=== PATIENT | male | born 1980 | race Hispanic/Latino ===

== ENCOUNTER 2018-08-25 02:36 | Inpatient (IN) | payer SELFPAY ==
[~2018-08-25] VITALS: Ht 177.8 cm; Wt 97.1 kg
[2018-08-25] VITALS (20 sets, daily range): BP systolic 84–118; BP diastolic 61–82
[2018-08-25] MEDS ORDERED: NITROGLYCERIN 2% OINT 1 GM PKT ONE (02:48)
[2018-08-25] MEDS ORDERED: ASPIRIN 81 MG CHEW TAB ONE (02:48)
--- NOTE | 2018-08-25 02:49 | NUR ---
Consents reviewed, all agreed upon, signed
[2018-08-25 02:57] LABS: BASOPHILS # (AUTO) 0.1 (0.0-0.1); BASOPHILS % 0.3 % (0.0-1.0); EOSINOPHILS # (AUTO) 0.2 (0.0-0.4); EOSINOPHILS % 1.4 % (0.0-6.0); HEMATOCRIT 32.9 % (38.2-49.6); HEMOGLOBIN 11.6 g/dL (14.0-18.0); LYMPHOCYTES # (AUTO) 1.6 (1.0-3.2); LYMPHOCYTES % 10.8 % (18.0-39.1); MEAN CORPUSCULAR HEMOGLOBIN 27.8 pg (28-32); MEAN CORPUSCULAR HGB CONC 35.3 g/dL (31-35); MEAN CORPUSCULAR VOLUME 78.7 fL (81-99); MONOCYTES # (AUTO) 0.9 (0.2-0.8); MONOCYTES % 5.9 % (4.4-11.3); NEUTROPHILS # (AUTO) 11.8 (2.1-6.9); NEUTROPHILS % 81.1 % (38.7-80.0); PLATELET COUNT 266 x10e3/uL (140-360); RED BLOOD COUNT 4.18 x10e6/uL (4.3-5.7); RED CELL DISTRIBUTION WIDTH 13.6 % (11.7-14.4)
[2018-08-25] MEDS ORDERED: ASPIRIN 81 MG CHEW TAB PO ONE ×2 (03:00)
[2018-08-25] MEDS ORDERED: NITROGLYCERIN 2% OINT 1 GM PKT TOP ONE (03:00)
--- NOTE | 2018-08-25 03:08 | NUR ---
Dr. Greene at pts bedside
--- NOTE | 2018-08-25 03:11 | NUR ---
portable xray to suze
[2018-08-25] MEDS ORDERED: IOPAMIDOL 370 MG/ML 200 ML INFUS..BTL INJ ONE (03:13)
[2018-08-25] MEDS ORDERED: HEPARIN SOD/SOD CHLORIDE 2,000 ML ONE (03:13)
[2018-08-25] MEDS ORDERED: LIDOCAINE HCL 2% LOCAL 20 ML VIAL ONE (03:13)
[2018-08-25 03:17] LABS: ALANINE AMINOTRANSFERASE 29 IU/L (0-55); ALBUMIN 3.8 g/dL (3.5-5.0); ALBUMIN/GLOBULIN RATIO 0.9 (0.8-2.0); ALKALINE PHOSPHATASE 88 IU/L (40-150); ANION GAP 17.9 mmol/L (8-16); BLOOD UREA NITROGEN 26 mg/dL (7-26); BUN/CREATININE RATIO 9 (6-25); CALCIUM 9.7 mg/dL (8.4-10.2); CARBON DIOXIDE 23 mmol/L (22-29); CHLORIDE 102 mmol/L (98-107); CREATINE KINASE 975 IU/L (30-200); CREATININE, SERUM 2.74 mg/dL (0.72-1.25); EST GLOMERULAR FILTRATION RATE 26 ML/MIN (60-); POTASSIUM 3.9 mmol/L (3.5-5.1); SODIUM 139 mmol/L (136-145)
[2018-08-25 03:19] LABS: GLUCOSE 565 mg/dL (74-118)
--- NOTE | 2018-08-25 03:20 | NUR ---
pt to chemical laboratory tester c eri lee, charge nurse and chemical laboratory tester nurse. pt c defib pads in place. o2 via nrb mask.
[2018-08-25] MEDS ORDERED: SODIUM CHLORIDE 0.9% 1000ML 1,000 ML ONE (03:23)
[2018-08-25] MEDS ORDERED: FENTANYL CITRATE/PF 100MCG/2 ML INJ ONE ×2 (03:23→04:44)
[2018-08-25] MEDS ORDERED: MIDAZOLAM HCL 2 MG/2 ML VIAL ONE ×3 (03:23→03:51)
[2018-08-25] MEDS ORDERED: NITROGLYCERIN/D5W 200 MCG/ML 250 ML ONE (03:26)
[2018-08-25] MEDS ORDERED: SODIUM CHLORIDE 0.9% 50ML 100 ML ONE (03:27)
[2018-08-25] MEDS ORDERED: BIVALRIUDIN 250 MG/VIAL VIAL IV ONE (03:27)
--- NOTE | 2018-08-25 03:27 | Diagnostic Imaging Report ---
EXAMINATION: CHEST SINGLE (PORTABLE) COMPARISON: Chest x-ray 04/26/2011 INDICATION: Chest pain, STEMI alert ^CHEST PAIN ^N DISCUSSION: Frontal view of the chest obtained at 0309 hours. HEART AND MEDIASTINUM: Mild cardiomegaly LINES: None. LUNGS: Diffuse interstitial edema and diffuse ground left airspace opacities. Mildly prominent pulmonary vasculature. PLEURA: No large effusions. No pneumothorax. BONES AND SOFT TISSUES: No focal osseous lesion. The soft tissues are normal. IMPRESSION: Interstitial and alveolar edema. Mild cardiomegaly. Signed by: Dr. Marga Cabrera MD on 08/25/2018 3:23 AM
[2018-08-25] MEDS ORDERED: FUROSEMIDE INJ 10 MG/ML 4 ML VIAL ONE (03:37)
[2018-08-25 03:56] LABS: INR 0.84; PARTIAL THROMBOPLASTIN TIME 27.8 seconds (23.8-35.5)
[2018-08-25] MEDS ORDERED: MIDAZOLAM HCL 25 MG in SODIUM CHLORIDE 0.9% 50ML 45 ML IV PRN ×2 (04:00→08:45)
[2018-08-25] MEDS ORDERED: CLOPIDOGREL BISULFATE 75 MG TAB ONE (04:01)
[2018-08-25] MEDS ORDERED: MIDAZOLAM HCL 5 MG/ML VIAL ONE (04:05)
[2018-08-25] MEDS ORDERED: SODIUM CHLORIDE 0.9% 0 ML ONE (04:06)
[2018-08-25] MEDS ORDERED: SODIUM CHLORIDE 0.9% 50ML 50 ML ONE (04:07)
--- OUTSIDE RECORDS SUMMARY | 2018-08-25 04:28 | XMS REPORT ---
Author [facility] Address Unknown Phone Unavailable Care Team Providers Care Spanish Interpreter/Translator Name Role Phone Cassidy DARDEN Unavailable Unavailable Problems This patient has no known problems. Allergies, Adverse Reactions, Alerts This patient has no known allergies or adverse reactions. Medications This patient has no known medications. Results Test Description Test Time Test Comments Text Results Atomic Results Result Comments CHEST SINGLE (PORTABLE) 2018-08-25 03:21:00 [place] [id number] Patient Name: MADAY GASPAR MR #: [id number] : 1980 Age/Sex: 38/M Req #: [id number] Adm Physician: Ordered by: TD DARDEN MD Report #: [id number] Location: ER Room/Bed: Procedure: [id number] DX/CHEST SINGLE (PORTABLE) Exam Date: Exam Time: REPORT STATUS: Signed EXAMINATION: CHEST SINGLE (PORTABLE) COMPARISON: [facility] x-ray 04/26/2011 INDICATION: Chest pain, STEMI alert CHEST PAIN N DISCUSSION: Frontal view of the chest obtained at 0309 hours. HEART AND MEDIASTINUM: Mild cardiomegaly LINES: None. LUNGS: Diffuse interstitial edema and diffuse ground left airspace opacities. Mildly prominent pulmonary vasculature. PLEURA: No large effusions. No pneumothorax. BONES AND SOFT TISSUES: No focal osseous lesion. The soft tissues are normal. IMPRESSION: Interstitial and alveolar edema. Mild cardiomegaly. Signed by: Dr. Dez Cabrera MD on 08/25/2018 3:23 AM Dictated By: DEZ CABRERA MD 2 Transcribed By: FABIAN on 08/25/18322 COPY TO: TD DARDEN MD
[2018-08-25] MEDS ORDERED: DEXTROSE 50% SYRINGE 50 ML IV PRN ×4 (04:30→14:00)
[2018-08-25] MEDS ORDERED: FENTANYL CITRATE/PF 100MCG/2 ML INJ IV ONE (04:30)
[2018-08-25] MEDS ORDERED: FENTANYL CITRATE INJ 2,000 MCG in SODIUM CHLORIDE 0.9% 250ML 210 ML IV PRN (04:30)
[2018-08-25] MEDS ORDERED: ONDANSETRON HCL INJ 2MG/ML 2ML 2 MG/ML VIAL ONE ×2 (04:41→16:09)
[2018-08-25] MEDS ORDERED: SODIUM CHLORIDE 0.9% 250ML 250 ML ONE (04:42)
[2018-08-25] MEDS ORDERED: ONDANSETRON HCL 4 MG ORAL DISINTEGRATING TAB PO PRN (04:45)
--- NOTE | 2018-08-25 04:58 | Consultation ---
DATE OF CONSULTATION: REASON FOR CONSULT: Acute anterolateral wall myocardial infarction. HISTORY OF PRESENT ILLNESS: Mr. Duran is a 38-year-old gentleman with past medical history as listed below. Apparently, he has been experiencing chest pain off and on for the week or so, but at about 8:00 p.m. last night, the patient developed crushing chest pain, it was persistent, short of breath and so he decided to come to the hospital this morning. EKG done at about 2:57, showed sinus rhythm, [address] elevation in I, aVL, V3 to V6 with Q-waves in V1 to V6 consistent with the recent anterolateral wall myocardial infarction. The patient continues to have chest pain at the time of interview. The patient is also short of breath. His O2 sats were in the high 80s and low 90s. Initially, there was plans of intubation, but intubation was held off. He denies any abdominal pain, vomiting, or diarrhea. No bleeding problems. REVIEW OF SYMPTOMS: CONSTITUTIONAL: Has fatigue and weakness. HEENT: No headache, blurring of vision, seizures, or syncope. CARDIOVASCULAR: Had chest pain, has dyspnea, and some orthopnea. No PND. He thinks he might have some leg edema. RESPIRATORY: No cough, fever, or expectoration. GI: No abdominal pain, vomiting, or diarrhea. : No dysuria, frequency, or incontinence. ALLERGIES: NO KNOWN DRUG ALLERGIES. MEDICATIONS: See list. PAST MEDICAL HISTORY: History of hypertension, reportedly has not been taking any medication for the last five weeks because he ran out of them. SOCIAL HISTORY: Does not smoke. Drinks occasionally. FAMILY HISTORY: There is family history of hypertension and diabetes. PHYSICAL EXAMINATION: GENERAL: Obese gentleman, alert, oriented, not in obvious distress. VITAL SIGNS: Heart rate is 102, blood pressure is 124/68. HEENT: Atraumatic. Neck: No JVD, bruit, thyromegaly, or lymphadenopathy. CARDIOVASCULAR: First and second heart sounds heard. No murmurs, rubs, or gallops appreciated. CHEST: Decreased air entry at the bases. No adventitious sounds appreciated. ABDOMEN: Obese, nontender. EXTREMITIES: Trace edema. LABORATORY DATA: EKG shows sinus rhythm at 97 beats per minute, rightward axis, normal intervals, [address] elevation, one aVL, V3 to V6 with Q-waves V1 to V6. IMPRESSION: 1. Reason/acute anterolateral wall myocardial infarction. 2. Hypertension. 3. Obesity. PLAN: 1. The patient probably had DE recently and given that he has Q-waves in his anterior leads and probably developed another thrombus causing anterolateral wall myocardial infarction and given the patient's presentation with persistent chest pain, we will take the patient to the laboratory supervisor for cardiac catheterization and possible PCI. The patient has been explained about the procedure, risks, benefits, complications, alternatives. He understands and agrees to it. 2. His labs are pending. 3. The patient received aspirin, would give him other appropriate medication including anticoagulant, anti-platelet agents, beta-blockers, statins, KENNETH inhibitors, etc. as indicated. 4. Discussed my impression and plan of management with the patient and he understands. 5. At the time of dictation, waiting for the laboratory supervisor to come by and take the patient to the laboratory supervisor. As always, I appreciate and thank you very much for referral. Gt Greene MD [facility]/MODL /[id number]
--- NOTE | 2018-08-25 05:12 | Operative Report ---
DATE OF PROCEDURE: 08/25/2018 SURGEON: Gt Greene MD PROCEDURE: 1. Left heart catheterization. 2. Selective common angiogram. 3. LV-gram. 4. Stent placement in the LAD. INDICATIONS: Acute inferior lateral wall myocardial infarction. ANESTHESIA: 2% lidocaine for local anesthesia, fentanyl for conscious sedation and later on etomidate and Versed. BLOOD LOSS: 10 mL. DESCRIPTION OF PROCEDURE: After informed consent, the patient was brought to the cardiac catheterization laboratory and placed on the table. Both groins were painted and draped in a sterile fashion. Lidocaine injected in the right groin for local anesthesia. Right femoral artery was accessed by Seldinger technique and a 6-Angolan sheath was placed in right femoral artery. Left main was cannulated using a JL4, 6-Angolan catheter. Cholangiogram was performed and images were obtained with multiple views. It was noted that the patient had 100% occluded mid LAD. The catheter was removed and the left main was cannulated using an XB LAD 3.56-Angolan guide. Run-through wire was manipulated and placed in the mid LAD into the one of the diagonal branches (was observed later). The lesion was dilated at 10 atmospheres for about 20-25 seconds. The balloon was removed. Cholangiogram was performed and good flow was noted. The patient was short of breath prior to the start of procedure and was a non-rebreather. Initially, there were plans to intubate him prior to the procedure; however, the patient was talking. It was decided to bring him to the cardiac catheterization laboratory for the procedure itself. The ER physician and stated in the hospital laboratory technician. Since the patient became very dyspneic, the ER physician intubated the patient. While the ER physician was working on intubation, a 2.75 x 32 mm Synergy drug-eluting stent was advanced over the wire and deployed in the proximal mid LAD at 12 atmospheres for about 20-25 seconds. All this was performed under constant fluoroscopic guidance. Excellent result was obtained. There was 0% residual stenosis and ZOILA-3 flow noted. More images of the left system were obtained. The right coronary artery was cannulated using a 3DRC 6-Angolan catheter. Cholangiogram was spine and images were obtained in multiple views. The catheter would cannulate the large right ventricular branch most likely within the right coronary artery. LV-gram was performed using a pigtail catheter by hand injection. It was a poor quality LV-gram as it was hand injection with very low contrast. The patient tolerated the procedure without complications. The patient was given Angiomax during the procedure. The patient did not have OG or an NG tube and so Plavix was given at the time of procedure. The patient was given aspirin prior to the start of procedure. He is going to get 600 mg Plavix at the moment an NG tube is inserted. REPORT: 1. Left main; is of normal caliber and has luminal irregularities. 2. Left anterior descending; is normal caliber, is totally occluded in its mid segment. 3. After intervention, there was ZOILA-3 flow and 0% residual stenosis at the site of lesion. 4. Left circumflex; the circumflex is a narrow caliber vessel which gives rise to a large 1st obtuse marginal branch. The 1st obtuse marginal branch has 70% proximal lesion. The circumflex tapers off up to the 3rd obtuse marginal branch. The 3rd obtuse marginal branch is a narrow caliber vessel and has a 95% proximal lesion. 5. Right coronary artery; is of normal caliber, gives rise to a large right ventricular branch. It has luminal irregularities in the right coronary artery and the right ventricular branch. 6. LV-gram, poor quality and ejection. LV ejection fraction is probably about 35-40%. HEMODYNAMICS: Aortic pressure 106/78, LV pressure 105/16, LVEDP is 33. Balloon used is a 2 x 12 mm Emerge. Stent used is a 2.75 x 32 mm Synergy drug-eluting stent which was deployed in the mid LAD. There was ZOILA-3 flow and 0% residual stenosis. Gt Greene MD [facility]/SAMMYL /[id number]
[2018-08-25] MEDS ORDERED: ONDANSETRON HCL INJ 2MG/ML 2ML 2 MG/ML VIAL IV PRN (05:15)
--- NOTE | 2018-08-25 05:33 | Diagnostic Imaging Report ---
EXAMINATION: CHEST SINGLE (PORTABLE) COMPARISON: Chest x-ray 0309 hours INDICATION: Intubated ^ETT PLACEMENT DISCUSSION: Frontal view of the chest obtained at 0513 hours. The right hemithorax was not imaged in its entirety. HEART AND MEDIASTINUM: The heart is mildly enlarged LINES: Endotracheal tube terminates 3 to 4 cm with the omar. Enteric tube extends past the diaphragm. Multiple EKG wires overlie the chest. LUNGS: Diffuse alveolar and interstitial edema has progressed. PLEURA: No large effusions. No pneumothorax. BONES AND SOFT TISSUES: Stable. IMPRESSION: 1. Support devices as described above. 2. Worsening pulmonary edema. Signed by: Dr. Marga Cabrera MD on 08/25/2018 5:30 AM
--- NOTE | 2018-08-25 05:36 | Diagnostic Imaging Report ---
Abdomen/KUB INDICATION: Tube placement ^OGT PLACEMENT COMPARISON: None. FINDINGS: Portable, supine image obtained at 0514 hours. Medical Devices: Enteric tube terminates in the proximal stomach. The sidehole is located inferior to the diaphragm. Bowel: Unremarkable bowel gas pattern. No dilated bowel loops. Free air: None Calcifications: None over the renal shadows or along the expected course of the ureters. Organomegaly: None Bones: Unremarkable IMPRESSION: NG tube as described above. Unremarkable bowel gas pattern. Signed by: Dr. Marga Cabrera MD on 08/25/2018 5:33 AM
[2018-08-25 07:01] LABS: BASOPHILS % 0.4 % (0.0-1.0); EOSINOPHILS % 0.3 % (0.0-6.0); HEMATOCRIT 25.6 % (38.2-49.6); HEMOGLOBIN 8.9 g/dL (14.0-18.0); LYMPHOCYTES % 8.8 % (18.0-39.1); MEAN CORPUSCULAR HEMOGLOBIN 27.8 pg (28-32); MEAN CORPUSCULAR HGB CONC 34.8 g/dL (31-35); MONOCYTES # (AUTO) 0.9 (0.2-0.8); MONOCYTES % 7.8 % (4.4-11.3); NEUTROPHILS # (AUTO) 9.2 (2.1-6.9); NEUTROPHILS % 82.2 % (38.7-80.0); PLATELET COUNT 181 x10e3/uL (140-360); RED CELL DISTRIBUTION WIDTH 13.5 % (11.7-14.4)
[2018-08-25 07:24] LABS: CHOL/HDL RATIO 6.1 (3.9-4.7); CHOLESTEROL 164 MD/DL (0-199); CREATINE KINASE 4221 IU/L (30-200); HDL CHOLESTEROL 27 MG/DL (40-60)
--- NOTE | 2018-08-25 07:28 | Diagnostic Imaging Report ---
Exam: Abdominal film Clinical History: Orogastric tube placement Comparison: 08/25/2018 at 0514 DISCUSSION: Interval advancement of enteric tube. The tip projects over the region of the pylorus. The bowel gas pattern shows no dilated, air-filled loops of bowel. Electronic device projects over the left lower quadrant, likely external to the patient. No mass effect or organomegaly. Regional skeletal structures are intact. IMPRESSION: Enteric tube tip projects over the expected region of the pylorus. Nonobstructive bowel gas pattern. Signed by: Dr. Bennie Grimaldo M.D. on 08/25/2018 7:24 AM
[2018-08-25] MEDS ORDERED: INSULIN REGULAR, HUMAN 100 UNIT/1 ML 3ML VIAL SQ ONE (07:45)
[2018-08-25 08:13] LABS: ALBUMIN 3.1 g/dL (3.5-5.0); ALBUMIN/GLOBULIN RATIO 0.9 (0.8-2.0); CALCIUM 8.5 mg/dL (8.4-10.2); CREATININE, SERUM 2.62 mg/dL (0.72-1.25)
[2018-08-25] MEDS ORDERED: SODIUM CHLORIDE 0.9% 1000ML 1,000 ML IV SCH (08:15)
[2018-08-25 08:25] LABS: LDL CHOLESTEROL 97 MG/DL (60-130); TRIGLYCERIDES 199 MG/DL (0-149)
[2018-08-25] MEDS ORDERED: INSULIN REGULAR, HUMAN 3ML VL 100 UNIT in SODIUM CHLORIDE 0.45% 100 ML 99 ML IV SCH ×2 (08:45)
[2018-08-25] MEDS: CLOPIDOGREL BISULFATE 75 MG TAB PO SCH (08:52)
[2018-08-25] MEDS: ASPIRIN 325 MG TAB PO SCH (08:52)
--- NOTE | 2018-08-25 08:54 | NUR ---
SPOKE TO INFORMED OF PATIENT BLOOD SUGARS, RECEIVED ORDERS WILL CONTINUE TO MONITOR
[2018-08-25] MEDS: NOREPINEPHRINE INJ 4MG/4ML 8 MG in DEXTROSE 5% 250ML 250 ML IV SCH (10:45)
[2018-08-25] MEDS ORDERED: INSULIN REGULAR, HUMAN 100 UNIT/1 ML 3ML VIAL SQ SCH (11:30)
--- NOTE | 2018-08-25 13:00 | NUR ---
SHEATH TO R GROIN PULLED AT THIS TIME, DRESSING IN PLACE WILL CONTINUE TO MONITOR CLOSELY
[2018-08-25] MEDS ORDERED: INSULIN REGULAR, HUMAN 3ML VL 300 UNIT in SODIUM CHLORIDE 0.45% 100 ML 300 ML IV SCH ×2 (13:49)
--- NOTE | 2018-08-25 14:14 | Consultation ---
DATE OF CONSULTATION: 08/25/2018 Pulmonary Critical Care Consultation CHIEF COMPLAINT: Myocardial infarction and respiratory failure. HISTORY OF PRESENT ILLNESS: The patient is a 38-year-old man. He has a history of diabetes and hypertension. He has been having intermittent chest pain off and on for about a week and came to the emergency department early this morning with crushing pain. He was found to have ST-segment elevation and was taken to the propagator laborer. He had emergent PTCA and stent placement. While in the propagator laborer, he had some difficulty breathing and some agitation. He was felt to have pulmonary edema and was subsequently intubated. He is now in the ICU on an assist-control mode of ventilation with a sheath in place. PAST MEDICAL HISTORY: 1. Diabetes. 2. Hypertension. PAST SURGICAL HISTORY: Noncontributory. ALLERGIES: NO KNOWN DRUG ALLERGIES. FAMILY HISTORY: Family history is significant for myocardial infarction as well as hypertension and diabetes. SOCIAL HISTORY: The patient is not an active smoker nor an active drinker. REVIEW OF SYSTEMS: The patient is afebrile. The patient has no headache. He has no neck pain. He is not having any chest pain at this time. He is intubated. He did have chest pain upon admission. He did complain of dyspnea on admission. He has no nausea or vomiting. There were no focal neurological abnormalities. PHYSICAL EXAMINATION: VITAL SIGNS: The patient is afebrile. His blood pressure is now 92/70, on fentanyl and propofol. His ventilator is set at an assist control of 16 with PRVC and a tidal volume of 500. His FiO2 is set at 50% and his PEEP is set at 5. HEENT: Shows no facial swelling or erythema. There is an oral endotracheal tube in place. LYMPHATIC: Shows no submandibular, cervical, or supraclavicular adenopathy. CARDIAC: Reveals a regular rate and rhythm with a normal S1 and S2. There are no murmurs or rubs. LUNGS: Auscultation of lungs reveals crackles in both lung [place]. ABDOMEN: Soft, nontender. There is no rebound or guarding. EXTREMITIES: Show no leg edema or calf tenderness. There is no cyanosis or clubbing. SKIN: Shows no rashes. NEUROLOGICAL: Shows no focal abnormalities. LABORATORY DATA: The white blood cell count is 11.2 and the hemoglobin is 9.0. The platelet count is 181. The BUN to creatinine ratio is 28:2.62. The glucose is 550. The troponin is greater than 30. RADIOGRAPHIC DATA: Chest x-ray showed some pulmonary edema. IMPRESSION: 1. Acute respiratory failure. 2. Acute systolic congestive heart failure. 3. Acute anterior lateral myocardial infarction. 4. Diabetes. 5. Hypertension. PLAN: 1. Continue diuresis. 2. Spontaneous breathing trial as soon as the patient can sit up. Work towards extubation. 3. Continue current treatment as per Cardiology. 4. Sliding scale insulin as well as long-acting insulin in the evening. 5. Case was discussed with Nursing, family, and Respiratory. Case was also discussed with Katty Morris and Dr. Saxena's service. Venancio Diaz MD [facility]/MODL /[id number]
[2018-08-25 14:27] LABS: FREE T4 (FREE THYROXINE) 1.06 ng/dL (0.9-1.8); THYROID STIMULATING HORMONE 1.476 uIU/mL (0.350-4.940)
--- NOTE | 2018-08-25 15:12 | NUR ---
CALLED TOVA ESPINOZA VEST LEFT FOR CONRADO [phone] REGARDING POSSIBLE LIFEVEST PER
[2018-08-25 15:52] LABS: CHOL/HDL RATIO 6.2 (3.9-4.7)
--- NOTE | 2018-08-25 15:55 | NUR ---
SPOKE TO CONRADO WITH [facility]EE STATES HE WILL COME SEE PATIENT MONSE
--- NOTE | 2018-08-25 16:00 | NUR ---
PT EXTUBATED THIS RN, RT AND MD AT BEDSIDE
[2018-08-25 16:25] LABS: CREATINE KINASE MB 80.1 ng/mL (0-5.0)
[2018-08-25 16:53] LABS: ABG HCO3 25 mmol/L (23-28); ABG PCO2 38 mmHg (41-51); ABG PH 7.42 (7.31-7.41); ABG PO2 139 mmHg (80-105)
[2018-08-25] MEDS ORDERED: ETOMIDATE 40 MG/ 20ML VIAL IV ONE (17:30)
[2018-08-25] MEDS ORDERED: SUCCINYLCHOLINE 200 MG/10 ML SYR ONE (17:30)
[2018-08-25] MEDS ORDERED: MORPHINE SULFATE 2 MG/ML SYR 1ML IV PRN (18:30)
[2018-08-25] MEDS ORDERED: MORPHINE SULFATE INJ 4 MG/ML INJ 1ML IV PRN (18:30)
[2018-08-25] MEDS ORDERED: ACETAMINOPHEN 325 MG TAB PO PRN (20:15)
[2018-08-25 21:00] LABS: BILIRUBIN,URINE NEGATIVE (NEGATIVE); CLARITY,URINE SL CLOUDY (CLEAR); COLOR,URINE YELLOW (YELLOW); KETONES,URINE NEGATIVE (NEGATIVE); LEUKOCYTE ESTERASE ,URINE NEGATIVE (NEGATIVE); NITRITE,URINE NEGATIVE (NEGATIVE); PROTEIN,URINE DIPSTICK 2+ (NEGATIVE); URINE UROBILINOGEN 0.2 mg/dL (0.2 - 1)
[2018-08-25] MEDS ORDERED: ATORVASTATIN 40 MG TAB PO SCH (21:00)
[2018-08-25] MEDS ORDERED: ATORVASTATIN 20 MG TAB PO SCH (21:00)
[2018-08-25 21:08] LABS: AMORPHOUS SEDIMENT,URINE MODERATE (FEW); BACTERIA,URINE MANY /HPF
--- NOTE | 2018-08-25 21:41 | Consultation ---
DATE OF CONSULTATION: 08/25/2018 Endocrine Consultation Patient of Dr. Saxena. Thank you very much for referring this patient HISTORY OF PRESENT ILLNESS: This is a 38-year-old gentleman, who is referred to me for evaluation of diabetic ketoacidosis and uncontrolled diabetes mellitus. The patient came to the hospital with a history of severe chest pain. On further evaluation, patient was found to have an acute myocardial infarction. The patient underwent angioplasty and stents. The patient is on vent at this time with acute respiratory failure. The patient tells us that he has diabetes in the past and was on metformin. No history of any other major medical problems in the past. Family history of diabetes positive. At the time of admission, his blood sugar was 565, and anion gap of 17.9. Presently, blood sugars are between 548 and 339. PHYSICAL EXAMINATION: GENERAL: Today, the patient is awake. He is on the vent at this time. VITAL SIGNS: His heart rate is around 78, blood pressure is 120/80 mmHg. HEENT: Essentially unremarkable. Thyroid is palpable. Clinically, he is near euthyroid. CHEST: Bilateral vesicular breathing. No rales heard. CARDIOVASCULAR: : Both first and second heart sounds. There is no third or fourth sound. 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 LABORATORY DATA: His troponins are significantly elevated. His creatinine is 2.62 and BUN is 28. CLINICAL IMPRESSION: 1. Diabetes mellitus type 2 with diabetic ketoacidosis. 2. Acute myocardial infarction. 3. Acute respiratory failure, on the vent. 4. Status post angioplasty and stent placement. PLANS: The plan at this time is to do hemoglobin A1c, thyroid function test, and start him on insulin drip. Thanks again for referring this patient. I will be following this patient with you. MD KARTHIK Barr/OMID /[id number]
[2018-08-25 22:13] LABS: CHOL/HDL RATIO 5.7 (3.9-4.7)
[2018-08-25 22:36] LABS: CREATINE KINASE MB 32.4 ng/mL (0-5.0)
[2018-08-26] VITALS (16 sets, daily range): BP systolic 10–103; BP diastolic 62–76
[2018-08-26] MEDS ORDERED: HYDRALAZINE HCL 20 MG/ML VIAL IV PRN
[2018-08-26] MEDS ORDERED: HYDROCODONE/APAP 7.5MG-325MG 1 EA TAB PO PRN
[2018-08-26] MEDS ORDERED: MORPHINE SULFATE INJ 4 MG/ML INJ 1ML IV PRN
[2018-08-26] MEDS ORDERED: TRAMADOL HCL 50 MG TAB PO PRN
[2018-08-26] MEDS ORDERED: HYDROCODONE/APAP 7.5MG-325MG 1 EA TAB ONE (00:06)
--- NOTE | 2018-08-26 04:30 | NUR ---
Pt OOB to BR assisted by RN. Pt c/o pain from Neal. says he cannot sit down with Neal in. Requested to have catheter dc'd. Neal was dc'd. cath tip intact. 500ml yellow urine in bag
[2018-08-26 05:44] LABS: BASOPHILS % 0.2 % (0.0-1.0); EOSINOPHILS % 0.2 % (0.0-6.0); HEMATOCRIT 28.8 % (38.2-49.6); HEMOGLOBIN 9.8 g/dL (14.0-18.0); LYMPHOCYTES % 11.9 % (18.0-39.1); MEAN CORPUSCULAR HEMOGLOBIN 27.8 pg (28-32); MEAN CORPUSCULAR VOLUME 81.6 fL (81-99); MONOCYTES # (AUTO) 1.9 (0.2-0.8); MONOCYTES % 11.7 % (4.4-11.3); NEUTROPHILS # (AUTO) 12.4 (2.1-6.9); NEUTROPHILS % 75.4 % (38.7-80.0); PLATELET COUNT 211 x10e3/uL (140-360); RED BLOOD COUNT 3.53 x10e6/uL (4.3-5.7)
--- NOTE | 2018-08-26 06:09 | Diagnostic Imaging Report ---
EXAMINATION: CHEST SINGLE (PORTABLE) COMPARISON: . INDICATION: Pulmonary edema. DISCUSSION: HEART AND MEDIASTINUM: The heart is mildly enlarged LINES: ET and NG tubes have been removed. LUNGS: Bilateral low lung volumes. Diffuse alveolar and interstitial edema have significantly decreased since the prior examination. PLEURA: No large effusions. No pneumothorax. BONES AND SOFT TISSUES: Stable. IMPRESSION: 1. Significant interval improvement of bilateral pulmonary edema. Signed by: Dr. Malissa Montgomery M.D. on 08/26/2018 6:06 AM
[2018-08-26 06:18] LABS: ALBUMIN 3.4 g/dL (3.5-5.0); BILIRUBIN,DIRECT 0.4 mg/dL (0.0-0.5)
[2018-08-26 06:26] LABS: ANION GAP 14.7 mmol/L (8-16); CREATININE, SERUM 3.35 mg/dL (0.72-1.25); FERRITIN 292.39 ng/mL (21.81-274.66); MAGNESIUM 1.8 MG/DL (1.3-2.1); POTASSIUM 3.7 mmol/L (3.5-5.1)
[2018-08-26 06:28] LABS: CHOL/HDL RATIO 4.9 (3.9-4.7); CREATINE KINASE MB 20.3 ng/mL (0-5.0)
[2018-08-26 07:00] LABS: FOLATE 9.9 ng/mL (7.0-15.4)
[2018-08-26 07:27] LABS: LYMPHOCYTES % (MANUAL) 5 % (19-48); MONOCYTES % (MANUAL) 10 % (3.4-9.0); NEUTROPHILS % (MANUAL) 85 % (40-74)
[2018-08-26 07:28] LABS: PLATELET ESTIMATE ADEQUATE
[2018-08-26 07:29] LABS: PLATELET MORPHOLOGY COMMENT FEW EDTA CLUMPING
[2018-08-26] MEDS: FAMOTIDINE 20 MG TAB PO SCH ×3 (08:20→15:53)
[2018-08-26] MEDS: CLOPIDOGREL BISULFATE 75 MG TAB PO SCH (08:35)
[2018-08-26] MEDS: ASPIRIN 325 MG TAB PO SCH (08:35)
[2018-08-26] MEDS: NOREPINEPHRINE INJ 4MG/4ML 8 MG in DEXTROSE 5% 250ML 250 ML IV SCH (08:35)
[2018-08-26] MEDS ORDERED: BISACODYL 5 MG TAB EC PO PRN (09:45)
[2018-08-26] MEDS ORDERED: METFORMIN HCL500 MG PO (10:03)
[2018-08-26] MEDS ORDERED: NORVASC5 MG PO (10:03)
[2018-08-26] MEDS ORDERED: LISINOPRIL10 MG PO (10:09)
[2018-08-26] MEDS ORDERED: LIPITOR20 MG (10:09)
[2018-08-26] MEDS ORDERED: CHLORPROMAZINE HCL INJ 25 MG/ML AMP INJ ONE (11:00)
[2018-08-26] MEDS: METOCLOPRAMIDE HCL 10 MG/2ML VIAL IV SCH ×3 (11:51→21:09)
[2018-08-26] MEDS: SODIUM CHLORIDE 0.9% 1000ML 1,000 ML IV SCH (11:51)
[2018-08-26] MEDS ORDERED: INSULIN LISPRO 100 UNIT/1 ML 3ML VIAL SQ NR (14:30)
--- NOTE | 2018-08-26 14:44 | Diagnostic Imaging Report ---
Ventilation/perfusion lung scan Clinical Information: 38 M with STEMI, pulmonary edema and acute respiratory failure Comparison: Chest radiograph 08/26/2018 Discussion: Xenon-133 gas 20 mCi was administered via inhalation. Dynamic images of the lungs in the posterior projection were obtained through single breath, equilibrium, and washout phases. Distribution of tracer activity is mildly irregular throughout the lungs. There are no segmental ventilatory defects. Washout of tracer is diffusely delayed without air trapping. Perfusion images of the lungs were obtained in multiple projections following intravenous administration of approximately 6.6 mCi of Tc-99m MAA. Distribution of tracer is mildly irregular throughout the lungs. The contours of the lungs are well demarcated. There are no segmental perfusion defects of any size. The cardiomediastinal silhouette is borderline enlarged. Impression: 1. Scan findings represent a VERY LOW probability for acute pulmonary embolic disease based on the PIOPED II criteria. 2. Scan evidence of obstructive lung disease. 3. Borderline enlarged cardiac silhouette. Signed by: Dr. Rocio Manjarrez M.D. on 08/26/2018 2:40 PM
[2018-08-26] MEDS: CEFTRIAXONE SOD 1 GM/NS 50 ML 50 ML IV SCH (15:53)
--- NOTE | 2018-08-26 16:28 | Diagnostic Imaging Report ---
Renal ultrasound. History: CKD Discussion: Transverse and longitudinal images of the kidneys were obtained demonstrating normal renal sizes and echogenicities. There is no evidence of hydronephrosis, mass or renal calculus. The right kidney measures 10.2 x 4.8 x 5.9 cm cm with a maximal cortical thickness of 1.2 cm. The left kidney measures 11.1 x 6.1 x 5.2 cm with a maximal cortical thickness of 1.6 cm. The urinary bladder is unremarkable. There is no evidence of free fluid. IMPRESSION: Normal renal ultrasound. Signed by: Dr. Dharmesh Jim DO on 08/26/2018 4:25 PM
--- NOTE | 2018-08-26 16:39 | NUR ---
Nutrition Screen Note RD Recommendation for Physician: - Add Cardiac restrictions to current diet - Diet education provided 08/26 Plan of Care: RD following, monitoring for tolerance and adequacy Nutrition reason for involvement: MD Consult- diet education Primary Diagnose(s): STEMI PMH: DM, HTN Ht: 70 in Wt: 214 lb BMI: 30.7 kg/m2 IBW: [address] Assessment: (08/26) 38 YOM admitted for STEMI, pt s/p extubation and seen today per MD consult for diet education. Pt and receptive to diet education at time of visit. Pt and educated on DM II nutrition therapy and heart healthy nutrition therapy emphasizing CHO sources, CHO counting, consistent meal intake, BG monitoring, medication compliance, encouraged fresh fruits, vegetables, lean meats, and whole grains. pt and educated on foods to avoid. Handouts provided. All questions and concerns addressed at time of visit. Pt Chart reviewed. Labs and meds reviewed. Will monitor and continue to follow. Current Diet: 1200 ADA, mechanical soft Malnutrition Evaluation (08/26/18) The patient does not meet criteria for a specified degree of malnutrition at this time. Will re-evaluate at follow-up as appropriate. Diet Education Needs Assessment: Diet education indicated, pt and receptive. Learner(s): pt, pt's Barriers: none Cultural/Language Modifications: none Readiness: ready Method: handouts, discussion Topics: DM II nutrition therapy, heart healthy nutrition therapy Understanding/Compliance: fair Nutrition Care Level: Low Signed: Lorena Antoine RD, LD, [facility]
[2018-08-26] MEDS: FERROUS SULFATE 325 MG TAB PO SCH (17:08)
[2018-08-26] MEDS: ASCORBIC ACID 500 MG TAB PO SCH (17:08)
[2018-08-26] MEDS: DOCUSATE SODIUM 100 MG CAP PO SCH (17:08)
--- NOTE | 2018-08-26 17:12 | Progress Note ---
DATE: Pulmonary Critical Care Progress Note SUBJECTIVE: The patient was extubated yesterday. He had a temperature to 99.8. He is not complaining of any cough or pain at this time. PHYSICAL EXAMINATION: VITAL SIGNS: The patient is afebrile. The vital signs are stable. HEENT: Shows no facial swelling or erythema. The nasal mucosa is normal. The oropharynx is normal. LYMPHATIC: Shows no submandibular, cervical, or supraclavicular adenopathy. CARDIAC: Reveals regular rate and rhythm with a normal S1, S2. There are no murmurs or rubs heard. LUNGS: Auscultation of lungs reveals a few crackles at the bases. ABDOMEN: Soft, nontender. There is no rebound or guarding. IMPRESSION: 1. Transmural myocardial infarction with PTCA and stent placement. 2. Acute systolic congestive heart failure. 3. Chronic renal failure stage 3. 4. Diabetes out of control. 5. Fever with leukocytosis. PLAN: 1. Continue current cardiac regimen. 2. Begin Rocephin 1 g twice daily until culture results are back. 3. Repeat CBC in the morning. 4. Transfer out of ICU to [facility]. 5. Continue to monitor and control blood sugars. Venancio Diaz MD [facility]/OMID /[id number]
[2018-08-26] MEDS: INSULIN LISPRO 100 UNIT/1 ML 3ML VIAL SQ SCH (17:19)
--- NOTE | 2018-08-26 17:22 | NUR ---
INSULIN DRIP OFF AT THIS TIME
--- NOTE | 2018-08-26 17:57 | Consultation ---
DATE OF CONSULTATION: REASON FOR CONSULTATION: Acute kidney injury. HISTORY OF PRESENT ILLNESS: This is a 38-year-old male, very noncompliant with medical care, comes in with chest pain going over the last one week, found to have a STEMI on EKG, underwent cardiac catheterization with stent placement. The patient reports that he has had diabetes for significant period of time, very noncompliant. He states he takes oral medications. He also states he has hypertension, does take medications for. He is still a chronic smoker. The patient denies any NSAID usage, [id number]-[id number] medications, or herbal supplements. Denies any drug usage as well. No chronic urinary tract infection. No blood in the stool or blood in the urine. He also denies any renal stones. The patient is seen and evaluated at bedside on the medical floor in the ICU. He is currently at baseline with no other issues. He is sitting in a chair and talking with no complaints. The patient reason why he had STEMI. I discussed with him about diet modifications, also weight loss. It seems like he does not understand or does not want to understand the cause of his STEMI. REVIEW OF SYSTEMS: 1. Pertinent positive: He had chest pain. 2. Pertinent negatives: Denies any palpitation, nausea, vomiting, diarrhea, dysuria, hematuria, frequency, urgency, lightheadedness, dizziness, abdominal pain, headaches, shortness of breath, cough, congestion, fever, or any other complaints. The rest of 14-point review of systems are reviewed with the patient and are negative. ALLERGIES: NO KNOWN DRUG ALLERGIES. HOME MEDICATIONS: Amlodipine 10 mg daily, Lipitor 20 mg daily, lisinopril 10 mg daily, Metformin 500 mg p.o. b.i.d. PAST MEDICAL HISTORY: Diabetes, hypertension, hyperlipidemia, and CAD. PAST SURGICAL HISTORY: Just recent status post left heart catheterization with stent placement. FAMILY HISTORY: Hypertension, diabetes, and heart disease. SOCIAL HISTORY: No drugs. He does drink alcohol occasionally. He is a chronic smoker for significant number of years. PHYSICAL EXAMINATION: VITAL SIGNS: Temperature is 99.8, pulse 85, respiratory rate is 16, blood pressure is 99/74, and pulse ox 99% on room air. GENERAL: Not in acute distress. Alert and oriented x3. Cooperative on examination. HEENT: Head is normocephalic and atraumatic. Eyes; pupils are equal, round, and reactive to light bilaterally. Extraocular movements are intact bilaterally. Throat, no evidence of erythema or exudates in the posterior pharynx. Has poor dentition. NECK: Supple. Good range of motion. PULMONARY: Clear to auscultation bilaterally. No wheezing, no rales, no rhonchi, no crackles appreciated. CARDIOVASCULAR: Positive S1, S2. No murmurs, rubs, or gallops appreciated. ABDOMEN: Soft, nondistended, and nontender to palpation. Bowel sounds present. MUSCULOSKELETAL: Strength is 5/5 throughout. No evidence of any muscle deficits on examination. No weakness appreciated. NEUROLOGICAL: Cranial nerves II through XII grossly intact. No evidence of any neurological deficits on exam. SKIN: Intact. Warm to touch. Good cap refill. PSYCHIATRIC: Normal affect and mood. EXTREMITIES: No edema. Good range of motion throughout. LAB FINDINGS: White count 16.4, hemoglobin 9.8, hematocrit 28, and platelets of 211. creatinine was 3.3 on admission, 2.74. BUN was 35. His potassium is all normal. Bicarbonate is normal. Iron saturation 5%, BNP 766, albumin is 3.4, LDL was 99. MICROBIOLOGY: Urine cultures, no growth to date. Blood cultures, no growth. IMAGING: Chest x-ray shows improvement of the bilateral pulmonary edema. EKG shows STEMI, underwent left heart catheterization yesterday, 08/25/2018. ASSESSMENT: 1. Acute kidney injury on chronic kidney disease, stage [address]-elevation myocardial infarction with contrast exposure. 2. ST-elevation myocardial infarction, requiring percutaneous coronary intervention. 3. Anemia. 4. Type 2 diabetes, uncontrolled. 5. Hypertension, uncontrolled. PLAN: At this time, the patient underwent PCI yesterday STEMI, which was indicated. Continue with low-dose IV fluids at 75 mL/hour to avoid worsening renal function. The patient was told that he needs to see a renal specialist in the past, which he reports that he has been calling, but with no response. My guess is that the patient likely in terms of his creatinine. I have no other record here in the hospital to confirm what his prior baseline creatinine was. We will go ahead and get a urine lytes, urine sodium, urine potassium, urine creatinine, urine protein, microalbumin to creatinine ratio. Renal ultrasound and start on IV fluids at 75 mL/hour. We will get a.m. labs as well. Monitor very closely. Discussed plan of care with family at bedside as well as nursing staff. MD BEE Slade/OMID /[id number]
[2018-08-26] MEDS ORDERED: INSULIN GLARGINE 100 UNITS/ML VIAL SQ SCH ×2 (21:00)
[2018-08-27] MEDS: SODIUM CHLORIDE 0.9% 1000ML 1,000 ML IV SCH (00:20)
[2018-08-27 00:54] VITALS: BP 103/72
[2018-08-27] MEDS: CEFTRIAXONE SOD 1 GM/NS 50 ML 50 ML IV SCH ×2 (03:47→15:15)
[2018-08-27 04:17] VITALS: BP 107/78
[2018-08-27 07:17] LABS: BASOPHILS % 0.3 % (0.0-1.0); EOSINOPHILS % 0.3 % (0.0-6.0); HEMATOCRIT 24.4 % (38.2-49.6); HEMOGLOBIN 8.3 g/dL (14.0-18.0); LYMPHOCYTES # (AUTO) 1.3 (1.0-3.2); LYMPHOCYTES % 12.1 % (18.0-39.1); MEAN CORPUSCULAR HEMOGLOBIN 27.4 pg (28-32); MEAN CORPUSCULAR VOLUME 80.5 fL (81-99); MONOCYTES # (AUTO) 1.1 (0.2-0.8); MONOCYTES % 10.2 % (4.4-11.3); NEUTROPHILS # (AUTO) 8.1 (2.1-6.9); NEUTROPHILS % 76.6 % (38.7-80.0); PLATELET COUNT 145 x10e3/uL (140-360); RED BLOOD COUNT 3.03 x10e6/uL (4.3-5.7); RED CELL DISTRIBUTION WIDTH 13.7 % (11.7-14.4)
--- NOTE | 2018-08-27 07:25 | NUR ---
Patient received awake, alert and Ox4. Says that he has minimal chest pain- a "3" on a scale of 1- 10. Declines any pain medication at this time. Says his chest pain has been improving over the last several days. Respirations are even and unlabored. Assisted to sit up on side of bed and tolerated well. Says his back was hurting due to mattress being uncomfortable.
[2018-08-27] MEDS: FAMOTIDINE 20 MG TAB PO SCH ×3 (07:30→16:43)
[2018-08-27] MEDS: METOCLOPRAMIDE HCL 10 MG/2ML VIAL IV SCH ×3 (07:30→16:43)
[2018-08-27 07:36] LABS: ANION GAP 14.7 mmol/L (8-16); CALCIUM 8.7 mg/dL (8.4-10.2); CREATININE, SERUM 3.11 mg/dL (0.72-1.25); POTASSIUM 3.7 mmol/L (3.5-5.1)
[2018-08-27 07:47] VITALS: BP 108/85
[2018-08-27 08:00] VITALS: BP 108/85
[2018-08-27] MEDS: INSULIN LISPRO 100 UNIT/1 ML 3ML VIAL SQ SCH (08:00)
[2018-08-27 08:04] LABS: CREATINE KINASE MB 4.8 ng/mL (0-5.0)
[2018-08-27] MEDS: CLOPIDOGREL BISULFATE 75 MG TAB PO SCH (08:49)
[2018-08-27] MEDS: DOCUSATE SODIUM 100 MG CAP PO SCH ×2 (08:49→16:46)
[2018-08-27] MEDS: ASCORBIC ACID 500 MG TAB PO SCH ×2 (08:49→16:46)
[2018-08-27] MEDS: ASPIRIN 325 MG TAB PO SCH (08:49)
[2018-08-27] MEDS: FERROUS SULFATE 325 MG TAB PO SCH ×2 (08:49→16:46)
--- NOTE | 2018-08-27 10:50 | Progress Note ---
DATE: Pulmonary Critical Care Progress Note SUBJECTIVE: The patient is transferred out of the Intensive Care Unit. His breathing has improved. He still has some cough and congestion. He is not having any chest pain. PHYSICAL EXAMINATION: VITAL SIGNS: The blood pressure is 108/85 and saturation 100% on 2 L. Pulse is 101. HEENT: Shows no facial swelling or erythema. Oropharynx is normal. LYMPHATIC: Shows no submandibular, cervical, or supraclavicular adenopathy. CARDIAC: Reveals regular rate and rhythm with normal S1 and S2. There are no murmurs or rubs heard. LUNGS: Auscultation of the lungs reveals crackles and rhonchi on both lung [place]. ABDOMEN: Soft, nontender. There is no rebound or guarding. EXTREMITIES: Shows no leg edema or calf tenderness. There is no cyanosis or clubbing. SKIN: Shows no rashes. NEUROLOGICAL: Shows no focal abnormalities. IMPRESSION: 1. Acute systolic congestive heart failure. 2. Transmural myocardial infarction with PTCA and stent placement. 3. Chronic renal failure stage 3. 4. Diabetes out of control. PLAN: 1. Continue current cardiac regimen. 2. Continue to monitor blood sugars and creatinine. 3. Out of bed as tolerated. Venancio Diaz MD [facility]/OMID /[id number]
[2018-08-27] MEDS ORDERED: BISACODYL 5 MG TAB EC PO NR (11:30)
[2018-08-27 11:41] VITALS: BP 109/70
--- NOTE | 2018-08-27 11:55 | Progress Note ---
DATE: Nephrology Progress Note SUBJECTIVE: The patient is doing much better today with no other complaints. He is current in [facility]. His vital signs are stable. I discussed the plan of care with the patient and family at bedside. PHYSICAL EXAMINATION: VITAL SIGNS: Temperature is 98.2, pulse 79, respiratory rate 19, blood pressure is 108/85, pulse ox 93%, he is on 3 L nasal cannula. GENERAL: Not in acute distress. Alert and oriented x3. Cooperative on examination. HEENT: Head is normocephalic and atraumatic. Eyes; pupils are equal, round, and reactive to light bilaterally. Extraocular movements are intact bilaterally. Throat, no evidence of any erythema or exudates in the posterior pharynx. Has poor dentition. NECK: Supple. Good range of motion. PULMONARY: Clear to auscultation bilaterally. No wheezing, no rales, no rhonchi, no crackles appreciated. CARDIOVASCULAR: Positive S1, S2. No murmurs, rubs, or gallops appreciated. ABDOMEN: Soft, nondistended, and nontender to palpation. Bowel sounds present. MUSCULOSKELETAL: Strength is 5/5 throughout. No evidence of any muscle deficits on examination. No weakness appreciated. NEUROLOGICAL: Cranial nerves II through XII grossly intact. No evidence of any neurological deficits on exam. SKIN: Intact. Warm to touch. Good cap refill. PSYCHIATRIC: Normal affect and mood. EXTREMITIES: No edema. Good range of motion throughout. LAB FINDINGS: Show white count 10.5, hemoglobin 8.3, hematocrit 24, platelets of 145. Chemistry; sodium 132, potassium 3.7, chloride 103, bicarb 19, anion gap of 14, BUN is 41, creatinine is 3.1, glucose of 270, calcium is 8.7. LDL was 99. Urinalysis, urine cultures pending. Blood cultures, no growth. IMAGING STUDIES: Renal ultrasound showed normal renal ultrasound shows right kidney of 10.2 cm. Left kidney is 11.1 cm. VQ scan shows a low probability of acute pulmonary embolism. IMPRESSION: 1. There is acute kidney injury on chronic kidney disease stage 4. 2. STEMI with contrast exposure needed for emergent case. 3. Anemia. 4. Type 2 diabetes, uncontrolled. 5. Uncontrolled hypertension. 6. Medical noncompliance. PLAN: At this time, he continues to be on IV fluids with creatinine likely to be at baseline. In reviewing his renal ultrasound, he likely has enlarged kidneys considering his type 2 diabetes being very uncontrolled. Though it does show normal renal echogenicity he may be in the phase of hyperfiltration from uncontrolled type 2 diabetes leading to enlarged kidney, though it does not state that his kidneys are normal. At this time, from a renal standpoint, we will continue same plan of care. Continue with some IV fluids. If he does get discharge he could follow up with a hotbed lever operator as an outpatient. The urine lytes that I ordered yesterday currently not available at this time. We will continue to follow with the primary team as well. MD BEE Slade/MODL /[id number]
--- NOTE | 2018-08-27 12:56 | NUR ---
GAVE PACKET OF INFORMATION WITH [facility]ITY [employer] FOR ASSISTANCE WITH LOW TO NO INCOME TO PATIENT. RESOURCES THAT PATIENT MAY BE ABLE TO FOLLOW UP UPON DISCHARGE. PT EDUCATED ON EACH RESOURCE AND UNDERSTANDING HOW TO FOLLOW UP TO SEE IF QUALIFIED FOR EACH RESOURCE.
[2018-08-27] MEDS ORDERED: METOPROLOL TARTRATE 25 MG TAB PO SCH (16:00)
[2018-08-27] MEDS ORDERED: INSULIN LISPRO 100 UNIT/1 ML 3ML VIAL SQ SCH (16:30)
[2018-08-27 16:51] VITALS: BP 105/75
[2018-08-27] MEDS ORDERED: CLOPIDOGREL75 MG PO (18:07)
[2018-08-27] MEDS ORDERED: NITROGLYCERIN0.4 MG SL (18:11)
[2018-08-27] MEDS ORDERED: METOPROLOL TART25 MG PO (18:11)
[2018-08-27] MEDS ORDERED: ACTOS15 MG PO (19:02)
[2018-08-27] MEDS ORDERED: INSULIN GLARGINE 100 UNITS/ML VIAL SQ SCH (21:00)
--- NOTE | 2018-08-28 04:58 | Discharge Summary ---
ADMISSION DIAGNOSES: ST-elevation myocardial infarction, hypertension, type 2 diabetes, acute kidney injury versus chronic kidney disease, elevated BNP, transaminitis, anemia, and respiratory distress. DISCHARGE DIAGNOSES: ST-elevation myocardial infarction, hypertension, type 2 diabetes, acute kidney injury versus chronic kidney disease, elevated BNP, transaminitis, anemia, respiratory distress, hypotension. Rule out urinary tract infection, 100% blockage on the LAD, rule out pulmonary embolism. HISTORY: The patient has a history of hypertension and type 2 diabetes. SURGICAL HISTORY: None. FAMILY HISTORY: The patient's mom and dad both have diabetes. The patient's dad had a heart attack. SOCIAL HISTORY: The patient admits to smoking 1-2 packs of cigarettes a day since he was 16 years old. HOSPITAL COURSE: A -year-old male admitted from the [facility], status post LAD stent. In the [facility], patient developed respiratory distress and was intubated. Per family report, the patient complains of centralized sharp chest pain that began 1 week ago. He had associated shortness of breath. Symptoms worsen with lying flat. He decided to come to the ER when the pain continued to worsen. On admission, chest x-ray showed interstitial and alveolar edema, mild cardiomegaly. Troponin on admission was over 30. BNP was 437. Echo showed an EF of about 30%. Cardiology recommended LifeVest prior to discharge. The patient's blood pressure remained stable off medication, so his home blood pressure medicines were discontinued. Per Cardiology recommendation, the patient can discharge home with a LifeVest and a prescription for Lipitor, Plavix, metoprolol, and nitroglycerin p.r.n. The patient will follow up with Primary Care in 1-[address] Greene as discussed. The patient and family understand discharge instructions and agree to plan. The patient's A1c was 8.9%. The patient was started on insulin per Endocrinology. Vital signs stable, patient afebrile. Dictated by Katty Morris NP MD LESLIE Jain/MODL /[id number]
== END 2018-08-27 17:45 | disposition home or self-care (01) | DRG 247 ==
LOC: ER 02:36 → ERHOLD 04:26 → ICU 04:32 → IMCU 08-27 00:37
PROVIDERS: ADMIT Internal Medicine; ATTEND Internal Medicine
PROC: 027034Z Dilation of Coronary Artery, One Artery with Drug-eluting Intraluminal Device, Percutaneous Approach (ICD-10-PCS; principal; 2018-08-25)
PROC: B2111ZZ Fluoroscopy of Multiple Coronary Arteries using Low Osmolar Contrast (ICD-10-PCS; 2018-08-25)
PROC: B2151ZZ Fluoroscopy of Left Heart using Low Osmolar Contrast (ICD-10-PCS; 2018-08-25)
PROC: 4A023N7 Measurement of Cardiac Sampling and Pressure, Left Heart, Percutaneous Approach (ICD-10-PCS; 2018-08-25)
DX: I21.4 Non-ST elevation (NSTEMI) myocardial infarction (principal); N17.9 Acute kidney failure, unspecified; N18.4 Chronic kidney disease, stage 4 (severe); I25.10 Atherosclerotic heart disease of native coronary artery without angina pectoris; Z91.19 Patient's noncompliance with other medical treatment and regimen; I12.9 Hypertensive chronic kidney disease with stage 1 through stage 4 chronic kidney disease, or unspecified chronic kidney disease; E11.22 Type 2 diabetes mellitus with diabetic chronic kidney disease; Z79.4 Long term (current) use of insulin
CPT/HCPCS: 36415; 36600; 71045; 74018; 76770; 78582; 80048; 80053; 80061; 80076; 81001; 82550; 82553; 82607; 82728; 82746; 82805; 82948; 83036; 83540; 83735; 83880; 84439; 84443; 84466; 84484; 85025; 85379; 85610; 85730; 87040; 87086; 92928; 93005; 93306; 93458; 93926; 94002; 94003; 99284; A9540; A9558; C1874; J0583; J0696; J1815; J1940; J2001; J2250; J2405; J2765; J7030; J7050; Q9967

== ENCOUNTER 2018-10-02 14:57 | Inpatient (IN) | payer SELFPAY ==
[~2018-10-02] VITALS: Ht 177.8 cm; Wt 95.3 kg
[~2018-10-02 14:57] MED LIST: ACTOS15 MG PO; CLOPIDOGREL75 MG PO; LIPITOR20 MG; LISINOPRIL10 MG PO; METFORMIN HCL500 MG PO; METOPROLOL TART25 MG PO; NITROGLYCERIN0.4 MG SL; NORVASC5 MG PO
[2018-10-02] MEDS ORDERED: ASPIRIN 81 MG CHEW TAB PO ONE (15:30)
[2018-10-02 15:49] LABS: BASOPHILS % 0.7 % (0.0-1.0); EOSINOPHILS # (AUTO) 0.2 (0.0-0.4); HEMATOCRIT 27.4 % (38.2-49.6); HEMOGLOBIN 9.1 g/dL (14.0-18.0); LYMPHOCYTES # (AUTO) 1.3 (1.0-3.2); LYMPHOCYTES % 21.5 % (18.0-39.1); MEAN CORPUSCULAR HEMOGLOBIN 26.5 pg (28-32); MEAN CORPUSCULAR HGB CONC 33.2 g/dL (31-35); MEAN CORPUSCULAR VOLUME 79.9 fL (81-99); MONOCYTES # (AUTO) 0.6 (0.2-0.8); MONOCYTES % 9.6 % (4.4-11.3); NEUTROPHILS # (AUTO) 3.8 (2.1-6.9); NEUTROPHILS % 64.9 % (38.7-80.0); PLATELET COUNT 229 x10e3/uL (140-360); RED BLOOD COUNT 3.43 x10e6/uL (4.3-5.7); RED CELL DISTRIBUTION WIDTH 13.9 % (11.7-14.4)
--- NOTE | 2018-10-02 15:56 | Diagnostic Imaging Report ---
EXAMINATION: CHEST SINGLE (PORTABLE) INDICATION: Chest pain. COMPARISON: Chest radiograph 08/26/2018. FINDINGS: TUBES and LINES: None. LUNGS: Lungs are well inflated. Central vascular congestion. Patchy right basilar opacity. No evidence of lobar pneumonia. PLEURA: No pleural effusion or pneumothorax. HEART AND MEDIASTINUM: The cardiomediastinal silhouette is unremarkable. BONES AND SOFT TISSUES: No acute osseous abnormality. UPPER ABDOMEN: No free air under the diaphragm. IMPRESSION: Central vascular congestion without pulmonary edema. Patchy right basilar opacity, likely atelectasis. Signed by: Dr. Inga Madsen MD on 10/02/2018 3:52 PM
[2018-10-02 15:59] LABS: PROTHROMBIN TIME 13.7 seconds (11.9-14.5)
[2018-10-02 16:00] LABS: PARTIAL THROMBOPLASTIN TIME 29.1 seconds (23.8-35.5)
[2018-10-02] MEDS ORDERED: CITRUCEL500 MG PO (16:05)
[2018-10-02] MEDS ORDERED: MUCINEX DM ER1 EACH PO (16:05)
[2018-10-02] MEDS ORDERED: ACETAMINOPHEN325 M1 PO (16:05)
[2018-10-02] MEDS ORDERED: METOPROLOL TART25 MG PO (16:05)
[2018-10-02] MEDS ORDERED: MULTI-VITAMIN1 EACH PO (16:05)
[2018-10-02] MEDS ORDERED: METFORMIN HCL500 MG PO (16:05)
[2018-10-02 16:10] LABS: ALBUMIN 4.2 g/dL (3.5-5.0); ALBUMIN/GLOBULIN RATIO 1.2 (0.8-2.0); ANION GAP 14.1 mmol/L (8-16); CALCIUM 9.5 mg/dL (8.4-10.2); CREATININE, SERUM 2.59 mg/dL (0.72-1.25); MAGNESIUM 2.4 MG/DL (1.3-2.1); POTASSIUM 4.1 mmol/L (3.5-5.1)
[2018-10-02 16:17] LABS: CREATINE KINASE MB 2.2 ng/mL (0-5.0)
[2018-10-02] MEDS ORDERED: SODIUM CHLORIDE 0.9% 250ML 250 ML IV ONE (18:15)
[2018-10-02] MEDS ORDERED: DEXTROSE 50% SYRINGE 50 ML IV PRN (18:15)
[2018-10-02] MEDS ORDERED: NITROGLYCERIN 0.4 MG SUBL SL PRN (18:15)
[2018-10-02] MEDS ORDERED: MORPHINE SULFATE 2 MG/ML SYR 1ML IV PRN (18:15)
[2018-10-02] MEDS ORDERED: MORPHINE SULFATE INJ 4 MG/ML INJ 1ML IV PRN (18:30)
[2018-10-02 20:39] VITALS: BP 115/70
[2018-10-02] MEDS: INSULIN REGULAR, HUMAN 100 UNIT/1 ML 3ML VIAL SQ SCH (21:00)
[2018-10-03] VITALS (8 sets, daily range): BP systolic 99–125; BP diastolic 52–75
[2018-10-03 05:53] LABS: CHOL/HDL RATIO 3.9 (3.9-4.7)
[2018-10-03 06:26] LABS: CREATINE KINASE MB 1.6 ng/mL (0-5.0)
[2018-10-03] MEDS: INSULIN REGULAR, HUMAN 100 UNIT/1 ML 3ML VIAL SQ SCH ×4 (07:30→21:37)
--- NOTE | 2018-10-03 07:53 | Consultation ---
DATE OF CONSULTATION: Cardiology Consultation CHIEF COMPLAINT: The patient is a 38-year-old with shortness of breath. HISTORY OF PRESENT ILLNESS: The patient is a 38-year-old who had an anterior wall myocardial infarction about a month ago with a stent placed in the left anterior descending artery. The patient's ejection fraction on recent echo was 20%. The patient was also known to have significant stenosis in the obtuse marginal branch of the circumflex artery. The patient was being admitted electively for staged stent placement in the obtuse marginal branch of the circumflex when it was noted to have a creatinine of 2.59 with increased dyspnea. The patient has had no chest pain. PAST MEDICAL HISTORY: Significant for; 1. Diabetes mellitus. 2. Hypertension. 3. Anterior wall myocardial infarction in August 2018 with stents placed. CURRENT MEDICATIONS: At home include: Atorvastatin, metformin, metoprolol, Lasix, clopidogrel, potassium, and losartan. SOCIAL HISTORY: The patient does not drink. The patient has been a smoker. FAMILY HISTORY: There is a known family history of coronary artery disease. PHYSICAL EXAMINATION: GENERAL: The patient is a well-developed and well-nourished male in no distress. VITAL SIGNS: Include a temperature of 98.8, blood pressure of 106/70, and pulse is 81. HEAD, EARS, EYES, NOSE, AND THROAT: The patient's cranium was normocephalic and atraumatic. Extraocular muscles were intact. Sclerae was anicteric. Pupils were equal, round, and reactive to light. There was no pallor or cyanosis of the oral mucosa. NECK: Supple. No jugular venous distention. No carotid bruits. CHEST: Clear to auscultation and percussion. CARDIAC: Demonstrated a normal S1 and S2 with a short 2/6 systolic murmur. ABDOMEN: Demonstrated good bowel sounds. No tenderness and no masses. EXTREMITIES: No clubbing, no cyanosis, and no edema. NEUROLOGIC: The patient was alert and oriented x3. Cranial nerves 2 through 12 were intact. Motor strength was +5/+5 in all limbs. IMAGING: The patient's EKG demonstrated normal sinus rhythm with a recent anterior wall myocardial infarction. IMPRESSION: The patient is a 38-year-old, who appears to be developing the severe heart failure after an anterior wall myocardial infarction. The patient's creatinine is elevated secondary to poor renal perfusion. RECOMMENDATIONS: As follows; 1. Stent placement in the circumflex artery will need to be postponed due to the renal insufficiency. 2. The patient will require Nephrology consult. 3. The patient will need to be continued angiotensin receptor blockers and beta-blockers. 4. Options for heart failure management will be discussed with cardiovascular surgery in the electrophysiology group. Bennie Diaz MD [facility]/MODL /[id number] cc: MD Juve Jain
[2018-10-03] MEDS: ASPIRIN 81 MG ENTERIC COATED PO SCH (09:17)
[2018-10-03] MEDS: LOSARTAN POTASSIUM 25 MG TAB PO SCH (09:17)
[2018-10-03] MEDS: METOPROLOL TARTRATE 25 MG TAB PO SCH ×2 (09:18→17:00)
[2018-10-03] MEDS ORDERED: ACETAMINOPHEN/CODEINE 300MG - 30MG TAB PO PRN (10:30)
[2018-10-03 10:43] LABS: BASOPHILS % 0.6 % (0.0-1.0); EOSINOPHILS # (AUTO) 0.2 (0.0-0.4); EOSINOPHILS % 3.4 % (0.0-6.0); HEMATOCRIT 25.7 % (38.2-49.6); HEMOGLOBIN 8.5 g/dL (14.0-18.0); LYMPHOCYTES # (AUTO) 1.3 (1.0-3.2); LYMPHOCYTES % 19.8 % (18.0-39.1); MEAN CORPUSCULAR HEMOGLOBIN 27.2 pg (28-32); MEAN CORPUSCULAR HGB CONC 33.1 g/dL (31-35); MEAN CORPUSCULAR VOLUME 82.1 fL (81-99); MONOCYTES # (AUTO) 0.7 (0.2-0.8); NEUTROPHILS # (AUTO) 4.2 (2.1-6.9); NEUTROPHILS % 64.9 % (38.7-80.0); PLATELET COUNT 210 x10e3/uL (140-360); RED BLOOD COUNT 3.13 x10e6/uL (4.3-5.7); RED CELL DISTRIBUTION WIDTH 14.2 % (11.7-14.4)
[2018-10-03] MEDS ORDERED: MORPHINE SULFATE INJ 4 MG/ML INJ 1ML IV PRN (10:45)
[2018-10-03 10:57] LABS: ANION GAP 11.9 mmol/L (8-16); CALCIUM 9.2 mg/dL (8.4-10.2); CREATININE, SERUM 2.62 mg/dL (0.72-1.25); MAGNESIUM 2.2 MG/DL (1.3-2.1); POTASSIUM 3.9 mmol/L (3.5-5.1)
[2018-10-03] MEDS ORDERED: DEXTROSE 50% SYRINGE 50 ML IV PRN (11:00)
[2018-10-03] MEDS: INSULIN LISPRO 100 UNIT/1 ML 3ML VIAL SQ SCH ×3 (11:30→21:00)
[2018-10-03 14:06] LABS: CREATINE KINASE MB 1.6 ng/mL (0-5.0)
--- NOTE | 2018-10-03 15:08 | Diagnostic Imaging Report ---
EXAMINATION: Renal ultrasound. CLINICAL HISTORY :Renal insufficiency COMPARISON: 08/26/2018 TECHNIQUE: Grayscale and color Doppler evaluation of the kidneys and bladder was performed in transverse and longitudinal planes. DISCUSSION: RIGHT KIDNEY: The right kidney measures 10.9 cm in length and shows normal renal cortical echogenicity. No hydronephrosis, shadowing calculi or solid mass lesions. LEFT KIDNEY: The left kidney measures 10.9 cm in length and shows normal renal cortical echogenicity. No hydronephrosis, shadowing calculi or solid mass lesions. BLADDER: Unremarkable. Right and left ureteral jets are identified. IMPRESSION: Unremarkable sonographic appearance of the kidneys. Signed by: Dr. Bennie Grimaldo M.D. on 10/03/2018 3:04 PM
[2018-10-03] MEDS: FERROUS SULFATE 325 MG TAB PO SCH (17:16)
[2018-10-03] MEDS: ASCORBIC ACID 500 MG TAB PO SCH (17:16)
[2018-10-03] MEDS: SODIUM CHLORIDE 0.9% 1000ML 1,000 ML IV SCH (20:00)
[2018-10-03] MEDS: ATORVASTATIN 20 MG TAB PO SCH (21:37)
[2018-10-04] VITALS (8 sets, daily range): BP systolic 96–120; BP diastolic 56–70
[2018-10-04 04:21] LABS: BASOPHILS # (AUTO) 0.1 (0.0-0.1); BASOPHILS % 0.7 % (0.0-1.0); EOSINOPHILS # (AUTO) 0.2 (0.0-0.4); EOSINOPHILS % 2.7 % (0.0-6.0); HEMATOCRIT 26.5 % (38.2-49.6); HEMOGLOBIN 8.9 g/dL (14.0-18.0); LYMPHOCYTES # (AUTO) 1.7 (1.0-3.2); LYMPHOCYTES % 24.8 % (18.0-39.1); MEAN CORPUSCULAR HEMOGLOBIN 26.7 pg (28-32); MEAN CORPUSCULAR HGB CONC 33.6 g/dL (31-35); MEAN CORPUSCULAR VOLUME 79.6 fL (81-99); MONOCYTES # (AUTO) 0.6 (0.2-0.8); MONOCYTES % 8.5 % (4.4-11.3); NEUTROPHILS # (AUTO) 4.4 (2.1-6.9); PLATELET COUNT 223 x10e3/uL (140-360); RED BLOOD COUNT 3.33 x10e6/uL (4.3-5.7)
[2018-10-04 04:35] LABS: ANION GAP 12.8 mmol/L (8-16); CALCIUM 9.2 mg/dL (8.4-10.2); CREATININE, SERUM 2.29 mg/dL (0.72-1.25); MAGNESIUM 2.1 MG/DL (1.3-2.1); POTASSIUM 3.8 mmol/L (3.5-5.1)
[2018-10-04 05:09] LABS: FERRITIN 256.75 ng/mL (21.81-274.66)
[2018-10-04] MEDS ORDERED: HYDROCHLOROTHIAZIDE 25 MG TAB PO SCH (05:45)
[2018-10-04] MEDS ORDERED: ALBUTEROL/IPRATROPIUM 3 ML NEB NEB PRN (05:45)
[2018-10-04] MEDS: SODIUM CHLORIDE 0.9% 1000ML 1,000 ML IV SCH ×2 (06:03→22:40)
[2018-10-04 06:24] LABS: FOLATE 15.7 ng/mL (7.0-15.4)
[2018-10-04] MEDS: ALBUTEROL/IPRATROPIUM 3 ML NEB NEB SCH ×3 (07:00→19:38)
[2018-10-04] MEDS: INSULIN REGULAR, HUMAN 100 UNIT/1 ML 3ML VIAL SQ SCH ×4 (07:30→21:00)
[2018-10-04] MEDS: FERROUS SULFATE 325 MG TAB PO SCH ×2 (08:11→17:55)
[2018-10-04] MEDS: ASPIRIN 81 MG ENTERIC COATED PO SCH (08:11)
[2018-10-04] MEDS: ASCORBIC ACID 500 MG TAB PO SCH ×2 (08:11→17:55)
[2018-10-04] MEDS: METOPROLOL TARTRATE 25 MG TAB PO SCH ×2 (08:12→17:55)
[2018-10-04] MEDS: LOSARTAN POTASSIUM 25 MG TAB PO SCH (08:12)
[2018-10-04] MEDS: POLYETHYLENE GLYCOL 3350 17 GM PACK PO SCH (10:56)
[2018-10-04] MEDS: DOCUSATE SODIUM 100 MG CAP PO SCH ×2 (10:56→17:55)
--- NOTE | 2018-10-04 18:20 | Consultation ---
DATE OF CONSULTATION: Nephrology consultation note REASON FOR CONSULTATION: Left heart catheterization schedule to avoid worsening renal function and contrast exposure. HISTORY OF PRESENT ILLNESS: A 38-year-old male, known to my service from prior admission with a history of CAD, recent stent placement, diabetes, hypertension, medical noncompliance, and chronic smoker, presents to the ED with complaints of shortness of breath. The patient was admitted for further evaluation and monitoring. Cardiology was consulted and recommends further cardiac catheterization to place more stents and further evaluation. The circumflex study was postponed and lungs to be intervened. Nephrology is consulted due to underlying chronic kidney disease and need for left heart catheterization. I had a long discussion with the patient at bedside including the family at present and that he will likely need to have the left heart cath to further fix his heart, but there may be a chance that his kidneys may get worsen and may end up on dialysis temporarily or even permanently. He verbalized understanding. At this time, we will prevent using IV fluids before and after left heart catheterization. REVIEW OF SYSTEMS: Pertinent positives: Shortness of breath. Pertinent negatives: Denies any chest pain, palpitation, nausea, vomiting, diarrhea, dysuria, hematuria, frequency, urgency, lightheadedness, dizziness, cough, congestion, fever, or any other complaints. The rest of the 14-point review of systems have been reviewed with the patient and are negative. ALLERGIES: NO KNOWN DRUG ALLERGIES. MEDICATIONS: See med reconciliation form. PAST MEDICAL HISTORY: He has type 2 diabetes, hypertension, medical noncompliance, and recent ND back in August 2018 with stents placed. SOCIAL HISTORY: Denies any drugs or any alcohol. He is a smoker. FAMILY HISTORY: Hypertension and diabetes. LAB FINDINGS: White count 6.9, hemoglobin 8.9, hematocrit 26, and platelets of 323. Chemistry; sodium 139, potassium 3.8, chloride 106, bicarb 24, anion gap of 12, BUN is 29, and creatinine is 2.29 with a GFR of 32, hemoglobin A1c 7.1, iron saturation 16%. PHYSICAL EXAMINATION: VITAL SIGNS: His temp is 98.8, pulse 79, respiratory rate is 19, blood pressure 107/66, and pulse ox 98% on room air. GENERAL: Not in acute distress, alert and oriented x3. Cooperative on examination. HEENT: Head is normocephalic and atraumatic. Eyes; pupils are equal, round, and reactive to light bilaterally. Extraocular movements are intact bilaterally. Throat, no evidence of erythema or exudates in the posterior pharynx. Has poor dentition. NECK: Supple. Good range of motion. PULMONARY: Clear to auscultation bilaterally. No wheezing, no rales, no rhonchi, no crackles appreciated. CARDIOVASCULAR: Positive S1, S2. No murmurs, rubs, or gallops appreciated. ABDOMEN: Soft, nondistended, and nontender to palpation. Bowel sounds present. MUSCULOSKELETAL: Strength is 5/5 throughout. No evidence of any muscle deficits on examination. No weakness appreciated. NEUROLOGICAL: Cranial nerves II through XII are grossly intact. No evidence of any neurological deficits on exam. SKIN: Intact. Warm to touch. Good cap refill. PSYCHIATRIC: Normal affect and mood. EXTREMITIES: No edema. Good range of motion throughout. IMPRESSION: 1. Chronic kidney disease, stage 3-4, likely due to underlying diabetic nephropathy, coronary artery disease, and hypertension and medical noncompliance. 2. Recent status post cardiac stent placement back in August 2018. PLAN: At this time, Nephrology is consulted for management and evaluation of CKD stage 3-4. In which, he will need a left heart cath scheduled for Saturday. I had a long discussion with the patient and with his parents at the bedside and nursing staff that you can try to prevent contrast-induced nephropathy from worsening renal function by using IV fluids. There is no guarantee that his kidney function will get worse. I also discussed with them that he may need temporary dialysis after the treatment if his renal function gets worse and in rare occasions I have seen the patients who are end-stage renal disease become permanently on dialysis. In this case, this patient has been very noncompliant with his care. He already has chronic disease. He is a smoker. He has diabetes, hypertension, and CAD. His risk is very high considering the fact that he may end up with contrast-induced nephropathy. I discussed this with him thoroughly at bedside. He understands that the risks involved in doing a left heart catheterization, though he has CKD, stage 3-4. At this time, we will continue with IV fluid hydration pre and post catheterization to avoid MARYLIN. Once again, he verbalized understanding. He agrees with plan of care. We will continue with that particular plan of care at this time. MD BEE Slade/OMID /[id number]
[2018-10-04] MEDS: ATORVASTATIN 20 MG TAB PO SCH (22:10)
[2018-10-05] VITALS (8 sets, daily range): BP systolic 100–122; BP diastolic 62–72
[2018-10-05] MEDS: ALBUTEROL/IPRATROPIUM 3 ML NEB NEB SCH ×4 (00:50→19:30)
[2018-10-05 05:36] LABS: BASOPHILS % 0.6 % (0.0-1.0); EOSINOPHILS # (AUTO) 0.1 (0.0-0.4); EOSINOPHILS % 2.3 % (0.0-6.0); HEMATOCRIT 24.1 % (38.2-49.6); HEMOGLOBIN 7.9 g/dL (14.0-18.0); LYMPHOCYTES # (AUTO) 1.4 (1.0-3.2); LYMPHOCYTES % 26.9 % (18.0-39.1); MEAN CORPUSCULAR HEMOGLOBIN 26.5 pg (28-32); MEAN CORPUSCULAR HGB CONC 32.8 g/dL (31-35); MEAN CORPUSCULAR VOLUME 80.9 fL (81-99); MONOCYTES # (AUTO) 0.6 (0.2-0.8); MONOCYTES % 11.2 % (4.4-11.3); NEUTROPHILS # (AUTO) 3.1 (2.1-6.9); NEUTROPHILS % 58.6 % (38.7-80.0); PLATELET COUNT 185 x10e3/uL (140-360); RED BLOOD COUNT 2.98 x10e6/uL (4.3-5.7); RED CELL DISTRIBUTION WIDTH 13.8 % (11.7-14.4)
[2018-10-05 05:55] LABS: ANION GAP 12.5 mmol/L (8-16); CALCIUM 8.7 mg/dL (8.4-10.2); CREATININE, SERUM 2.22 mg/dL (0.72-1.25); POTASSIUM 3.5 mmol/L (3.5-5.1)
[2018-10-05] MEDS: INSULIN REGULAR, HUMAN 100 UNIT/1 ML 3ML VIAL SQ SCH ×4 (07:30→20:35)
[2018-10-05] MEDS ORDERED: ONDANSETRON HCL INJ 2MG/ML 2ML 2 MG/ML VIAL IV PRN (09:15)
[2018-10-05] MEDS: FERROUS SULFATE 325 MG TAB PO SCH ×2 (09:15→17:36)
[2018-10-05] MEDS: ASPIRIN 81 MG ENTERIC COATED PO SCH (09:15)
[2018-10-05] MEDS ORDERED: SODIUM CHLORIDE 0.9% 250ML 250 ML IV NR (09:15)
[2018-10-05] MEDS ORDERED: BISACODYL 5 MG TAB EC PO NR (09:15)
[2018-10-05] MEDS ORDERED: FUROSEMIDE INJ 10 MG/ML 2 ML VIAL IV SCH (09:15)
[2018-10-05] MEDS: ASCORBIC ACID 500 MG TAB PO SCH ×2 (09:15→17:36)
[2018-10-05] MEDS: DOCUSATE SODIUM 100 MG CAP PO SCH ×2 (09:15→17:35)
[2018-10-05] MEDS ORDERED: ACETAMINOPHEN 325 MG TAB PO PRN (09:15)
[2018-10-05] MEDS ORDERED: HYDRALAZINE HCL 20 MG/ML VIAL IV PRN (09:15)
[2018-10-05] MEDS: LOSARTAN POTASSIUM 25 MG TAB PO SCH (09:16)
[2018-10-05] MEDS: METOPROLOL TARTRATE 25 MG TAB PO SCH ×2 (09:16→17:36)
[2018-10-05] MEDS: POLYETHYLENE GLYCOL 3350 17 GM PACK PO SCH (09:17)
[2018-10-05] MEDS ORDERED: METHYLPREDNISOLONE SOD SUCC 40 MG/ML VIAL 1ML IV NR (09:30)
[2018-10-05] MEDS: PANTOPRAZOLE SOD 40 MG TABEC PO SCH (09:57)
[2018-10-05] MEDS: LORATADINE 10 MG TAB PO SCH (09:57)
[2018-10-05] MEDS ORDERED: HYDROCHLOROTHIAZIDE 25 MG TAB PO NR (10:45)
[2018-10-05] MEDS: GUAIFENESIN 600 MG TAB PO SCH ×3 (11:30→23:34)
[2018-10-05] MEDS: SODIUM CHLORIDE 0.9% 1000ML 1,000 ML IV SCH (11:30)
[2018-10-05] MEDS ORDERED: SODIUM CHLORIDE 0.9% 250ML 250 ML ONE (12:27)
[2018-10-05] MEDS: ATORVASTATIN 20 MG TAB PO SCH (20:35)
[2018-10-06] VITALS (14 sets, daily range): BP systolic 107–121; BP diastolic 65–89
[2018-10-06] MEDS: ALBUTEROL/IPRATROPIUM 3 ML NEB NEB SCH ×4 (01:00→19:40)
[2018-10-06 03:52] LABS: BASOPHILS % 0.4 % (0.0-1.0); EOSINOPHILS % 0.4 % (0.0-6.0); HEMATOCRIT 27.7 % (38.2-49.6); HEMOGLOBIN 9.4 g/dL (14.0-18.0); LYMPHOCYTES # (AUTO) 1.3 (1.0-3.2); LYMPHOCYTES % 13.9 % (18.0-39.1); MEAN CORPUSCULAR HEMOGLOBIN 27.2 pg (28-32); MEAN CORPUSCULAR HGB CONC 33.9 g/dL (31-35); MEAN CORPUSCULAR VOLUME 80.1 fL (81-99); MONOCYTES # (AUTO) 0.7 (0.2-0.8); MONOCYTES % 7.9 % (4.4-11.3); NEUTROPHILS # (AUTO) 7.3 (2.1-6.9); NEUTROPHILS % 77.1 % (38.7-80.0); PLATELET COUNT 191 x10e3/uL (140-360); RED BLOOD COUNT 3.46 x10e6/uL (4.3-5.7); RED CELL DISTRIBUTION WIDTH 14.2 % (11.7-14.4)
[2018-10-06] MEDS: SODIUM CHLORIDE 0.9% 1000ML 1,000 ML IV SCH ×2 (03:58→15:47)
[2018-10-06 04:13] LABS: ANION GAP 12.9 mmol/L (8-16); CALCIUM 9.2 mg/dL (8.4-10.2); CREATININE, SERUM 2.33 mg/dL (0.72-1.25); POTASSIUM 3.9 mmol/L (3.5-5.1)
[2018-10-06] MEDS: GUAIFENESIN 600 MG TAB PO SCH ×4 (06:00→23:48)
[2018-10-06] MEDS: PANTOPRAZOLE SOD 40 MG TABEC PO SCH (07:30)
[2018-10-06] MEDS: INSULIN REGULAR, HUMAN 100 UNIT/1 ML 3ML VIAL SQ SCH ×4 (07:30→21:00)
[2018-10-06] MEDS: FERROUS SULFATE 325 MG TAB PO SCH ×2 (08:00→17:00)
[2018-10-06] MEDS: LORATADINE 10 MG TAB PO SCH (09:00)
[2018-10-06] MEDS: POLYETHYLENE GLYCOL 3350 17 GM PACK PO SCH (09:00)
[2018-10-06] MEDS: METOPROLOL TARTRATE 25 MG TAB PO SCH ×2 (09:00→21:00)
[2018-10-06] MEDS: ASCORBIC ACID 500 MG TAB PO SCH ×2 (09:00→21:00)
[2018-10-06] MEDS: LOSARTAN POTASSIUM 25 MG TAB PO SCH (09:00)
[2018-10-06] MEDS: ASPIRIN 81 MG ENTERIC COATED PO SCH (09:00)
[2018-10-06] MEDS: DOCUSATE SODIUM 100 MG CAP PO SCH ×2 (09:00→21:00)
[2018-10-06 10:42] LABS: BILIRUBIN,URINE NEGATIVE (NEGATIVE); CLARITY,URINE OTHER (CLEAR); COLOR,URINE YELLOW (YELLOW); KETONES,URINE NEGATIVE (NEGATIVE); LEUKOCYTE ESTERASE ,URINE NEGATIVE (NEGATIVE); NITRITE,URINE NEGATIVE (NEGATIVE); PROTEIN,URINE DIPSTICK NEGATIVE (NEGATIVE); URINE UROBILINOGEN 0.2 mg/dL (0.2 - 1)
[2018-10-06 11:08] LABS: EPITHELIAL CELLS,URINE RARE /LPF; RBC,URINE 0-5 /HPF (0-5)
[2018-10-06 11:09] LABS: TRIPLE PHOSPHATE CRYSTAL,UR RARE (FEW)
[2018-10-06] MEDS ORDERED: FENTANYL CITRATE/PF 100MCG/2 ML INJ ONE ×2 (16:01→17:42)
[2018-10-06] MEDS ORDERED: HEPARIN SOD/SOD CHLORIDE 2,000 ML ONE (16:01)
[2018-10-06] MEDS ORDERED: LIDOCAINE HCL 2% LOCAL 20 ML VIAL ONE (16:01)
[2018-10-06] MEDS ORDERED: MIDAZOLAM HCL 2 MG/2 ML VIAL ONE ×3 (16:01→16:56)
[2018-10-06] MEDS ORDERED: IOPAMIDOL 370 MG/ML 200 ML INFUS..BTL INJ ONE (16:02)
[2018-10-06] MEDS ORDERED: SODIUM CHLORIDE 0.9% 1000ML 1,000 ML ONE (16:02)
[2018-10-06] MEDS ORDERED: NITROGLYCERIN/D5W 200 MCG/ML 250 ML ONE (16:37)
[2018-10-06] MEDS ORDERED: HEPARIN SOD (PORCINE) 1000 UNIT/ML 30ML ONE (16:37)
[2018-10-06] MEDS ORDERED: ASPIRIN 325 MG TAB ONE (17:59)
[2018-10-06] MEDS ORDERED: CLOPIDOGREL BISULFATE 75 MG TAB ONE (17:59)
[2018-10-06] MEDS ORDERED: ATORVASTATIN 20 MG TAB PO SCH (21:00)
[2018-10-06] MEDS: ATORVASTATIN 20 MG TAB PO SCH (21:00)
--- NOTE | 2018-10-06 23:54 | Operative Report ---
DATE OF PROCEDURE: SURGEON: Bennie Diaz MD PROCEDURE: 1. Intracoronary stent placement in the obtuse marginal branch of the circumflex artery. 2. Intracoronary stent placement in the AV circumflex artery. INDICATION: 1. Angina. 2. Coronary artery disease. TECHNIQUE: The patient had a previous myocardial infarction of the anterior wall in August and a stent was placed in the left anterior descending artery. This was a staged stent placement of the circumflex artery. The patient was draped and prepped in the usual manner. The right groin was anesthetized with lidocaine. Standard Seldinger technique was used to place a 6-Polish sheath into the right femoral artery without difficulty. An XB 3.5 guiding catheter was used to selectively engage the left coronary artery. A Choice PT wire was used to cross the area of 80% stenosis in the obtuse marginal branch of the circumflex artery. The patient was bolused with heparin, [id number] units. The patient was given 600 mg of Plavix. A 2.5 mm x 15 mm balloon was used to pre-dilate the area of 80% stenosis. A 3.0 mm x 24 mm stent was deployed at 16 atmospheres for 30 seconds and then post dilated with a 3.0 x 15 mm noncompliant balloon. Attention was turned to the long area of 90% stenosis in the AV circumflex artery. The area was crossed with a Choice PT wire. The area was pre-dilated with a 2.5 mm x 12 mm balloon. The patient had similar dissection. A 2.25 mm x 24 mm stent was then deployed distally at 14 atmospheres for 30 seconds. A second 2.5 mm x 32 mm stent was then deployed proximally at 16 atmospheres for 30 seconds. A Mynx device was used for closure. CONCLUSION: Successful stent placement in the obtuse marginal branch of the circumflex artery and in the AV circumflex artery. Bennie Diaz MD [facility]/MODL /[id number] cc: Jimbo Saxena MD
[2018-10-07] VITALS (15 sets, daily range): BP systolic 103–123; BP diastolic 66–81
[2018-10-07] MEDS: ALBUTEROL/IPRATROPIUM 3 ML NEB NEB SCH ×4 (01:10→20:45)
[2018-10-07] MEDS: SODIUM CHLORIDE 0.9% 1000ML 1,000 ML IV SCH ×2 (04:00→18:55)
[2018-10-07 05:06] LABS: BASOPHILS % 0.4 % (0.0-1.0); EOSINOPHILS # (AUTO) 0.2 (0.0-0.4); EOSINOPHILS % 2.2 % (0.0-6.0); HEMATOCRIT 26.8 % (38.2-49.6); HEMOGLOBIN 8.7 g/dL (14.0-18.0); LYMPHOCYTES # (AUTO) 0.6 (1.0-3.2); LYMPHOCYTES % 8.6 % (18.0-39.1); MEAN CORPUSCULAR HEMOGLOBIN 27.2 pg (28-32); MEAN CORPUSCULAR HGB CONC 32.5 g/dL (31-35); MEAN CORPUSCULAR VOLUME 83.8 fL (81-99); MONOCYTES # (AUTO) 0.6 (0.2-0.8); MONOCYTES % 8.4 % (4.4-11.3); NEUTROPHILS # (AUTO) 5.9 (2.1-6.9); NEUTROPHILS % 80.1 % (38.7-80.0); PLATELET COUNT 173 x10e3/uL (140-360); RED CELL DISTRIBUTION WIDTH 14.6 % (11.7-14.4)
[2018-10-07 05:33] LABS: ANION GAP 9.7 mmol/L (8-16); CREATININE, SERUM 2.35 mg/dL (0.72-1.25); MAGNESIUM 2.1 MG/DL (1.3-2.1); POTASSIUM 4.7 mmol/L (3.5-5.1)
[2018-10-07] MEDS: GUAIFENESIN 600 MG TAB PO SCH ×4 (06:00→23:27)
[2018-10-07] MEDS: PANTOPRAZOLE SOD 40 MG TABEC PO SCH (07:13)
[2018-10-07] MEDS: INSULIN REGULAR, HUMAN 100 UNIT/1 ML 3ML VIAL SQ SCH ×4 (07:30→21:00)
[2018-10-07] MEDS: POLYETHYLENE GLYCOL 3350 17 GM PACK PO SCH (09:00)
[2018-10-07] MEDS: FERROUS SULFATE 325 MG TAB PO SCH ×2 (09:35→16:46)
[2018-10-07] MEDS: LORATADINE 10 MG TAB PO SCH (09:35)
[2018-10-07] MEDS: ASPIRIN 81 MG ENTERIC COATED PO SCH (09:35)
[2018-10-07] MEDS: LOSARTAN POTASSIUM 25 MG TAB PO SCH (09:35)
[2018-10-07] MEDS: METOPROLOL TARTRATE 25 MG TAB PO SCH ×2 (09:36→21:00)
[2018-10-07] MEDS: ASCORBIC ACID 500 MG TAB PO SCH ×2 (09:36→21:00)
[2018-10-07] MEDS: DOCUSATE SODIUM 100 MG CAP PO SCH ×2 (09:36→21:00)
[2018-10-07] MEDS: CLOPIDOGREL BISULFATE 75 MG TAB PO SCH (09:36)
[2018-10-07] MEDS ORDERED: BISACODYL 5 MG TAB EC PO ONE (10:45)
[2018-10-07] MEDS: ATORVASTATIN 20 MG TAB PO SCH (21:00)
[2018-10-08] VITALS: BP 134/74
[2018-10-08] MEDS: ALBUTEROL/IPRATROPIUM 3 ML NEB NEB SCH ×3 (01:00→13:00)
[2018-10-08 04:00] VITALS: BP 115/71
[2018-10-08] MEDS: GUAIFENESIN 600 MG TAB PO SCH ×2 (05:53→12:00)
[2018-10-08 06:08] LABS: ANION GAP 9.8 mmol/L (8-16); CALCIUM 8.7 mg/dL (8.4-10.2); CREATININE, SERUM 2.2 mg/dL (0.72-1.25); MAGNESIUM 1.7 MG/DL (1.3-2.1); POTASSIUM 3.8 mmol/L (3.5-5.1)
[2018-10-08 06:09] LABS: BASOPHILS % 0.5 % (0.0-1.0); EOSINOPHILS # (AUTO) 0.3 (0.0-0.4); EOSINOPHILS % 4.7 % (0.0-6.0); HEMATOCRIT 24.6 % (38.2-49.6); LYMPHOCYTES % 17.4 % (18.0-39.1); MEAN CORPUSCULAR HGB CONC 32.5 g/dL (31-35); MEAN CORPUSCULAR VOLUME 83.1 fL (81-99); MONOCYTES # (AUTO) 0.6 (0.2-0.8); MONOCYTES % 10.6 % (4.4-11.3); NEUTROPHILS # (AUTO) 3.9 (2.1-6.9); NEUTROPHILS % 66.5 % (38.7-80.0); PLATELET COUNT 173 x10e3/uL (140-360); RED BLOOD COUNT 2.96 x10e6/uL (4.3-5.7); RED CELL DISTRIBUTION WIDTH 14.6 % (11.7-14.4)
[2018-10-08] MEDS: SODIUM CHLORIDE 0.9% 1000ML 1,000 ML IV SCH (06:40)
[2018-10-08] MEDS: INSULIN REGULAR, HUMAN 100 UNIT/1 ML 3ML VIAL SQ SCH ×2 (07:30→11:30)
[2018-10-08 07:59] VITALS: BP 116/73
[2018-10-08 08:00] VITALS: BP 116/73
[2018-10-08] MEDS: DOCUSATE SODIUM 100 MG CAP PO SCH (08:08)
[2018-10-08] MEDS: FERROUS SULFATE 325 MG TAB PO SCH (08:08)
[2018-10-08] MEDS: CLOPIDOGREL BISULFATE 75 MG TAB PO SCH (08:08)
[2018-10-08] MEDS: ASCORBIC ACID 500 MG TAB PO SCH (08:08)
[2018-10-08] MEDS: LORATADINE 10 MG TAB PO SCH (08:09)
[2018-10-08] MEDS: ASPIRIN 81 MG ENTERIC COATED PO SCH (08:09)
[2018-10-08] MEDS: PANTOPRAZOLE SOD 40 MG TABEC PO SCH (08:09)
[2018-10-08] MEDS: POLYETHYLENE GLYCOL 3350 17 GM PACK PO SCH (08:10)
[2018-10-08] MEDS: LOSARTAN POTASSIUM 25 MG TAB PO SCH (08:11)
[2018-10-08] MEDS: METOPROLOL TARTRATE 25 MG TAB PO SCH (08:12)
[2018-10-08 11:27] VITALS: BP 119/58
[2018-10-08] MEDS ORDERED: ONDANSETRON HCL 4 MG ORAL DISINTEGRATING TAB PO PRN (11:30)
[2018-10-08] MEDS ORDERED: TRADJENTA5 MG PO (12:31)
--- NOTE | 2018-10-09 11:19 | Discharge Summary ---
CONSULTATIONS: 1. Dr. Bennie Diaz, Cardiology. 2. Dr. Wilfred Grider, Nephrology. HISTORY OF PRESENT ILLNESS: Mr. Duran is a 38-year-old male who came in with complaints of shortness of breath. He had an LAD stent placed in August 2018 and was scheduled to have an elective stent placement in the obtuse marginal branch of the circumflex when the second baker noted an elevated creatinine. The patient admitted to not being compliant with his LifeVest. He was admitted to the [facility] for observation of his kidney status as well as subsequent stent placement. PAST MEDICAL HISTORY: Significant for diabetes, hypertension, anterior wall CO, stent placement, and acute systolic CHF. FAMILY HISTORY: Mother and father had diabetes. Father had a heart attack. SOCIAL HISTORY: Tobacco use. ALLERGIES: NO KNOWN ALLERGIES. ADMITTING DIAGNOSES: 1. Acute systolic congestive heart failure. 2. Chronic kidney disease 3-4. 3. Hypermagnesemia. 4. Anemia. 5. Type 2 diabetes mellitus. DISCHARGE DIAGNOSES: 1. Acute on chronic systolic congestive heart failure due to CO. 2. Heart catheterization with marginal branch of the circumflex artery in the AV circumflex artery, with stent placement. 3. Chronic kidney disease 3-4. 4. Anemia. 5. Type 2 diabetes mellitus. LABORATORY AND IMAGING DATA: On admission, hemoglobin 9.1 and hematocrit 27.4. PT 13.7 and INR 1.0. Potassium 4.1, BUN 27, creatinine 2.59, GFR 28, magnesium 2.4, and calcium 9.5. LFTs are normal. Protein level is normal. Hemoglobin A1c was 7.1%. B type nitrate peptide 1051. Today on the day of discharge, sodium 136, potassium 3.8, chloride 109, BUN 28, creatinine 2.2, and GFR 33. Calcium 8.7. Magnesium 1.7. B type natriuretic peptide 1003.1. His fingerstick blood glucose levels 115 and 133. Chest x-ray done on admission showed central venous congestion without pulmonary edema, patchy right basilar opacity, likely atelectasis. The renal ultrasound was unremarkable. Heart rate on telemetry 73, normal sinus rhythm. Fecal occult blood test was negative. HOSPITAL COURSE: Per Cardiology service, okay to discharge the patient home. Case was discussed with Nephrology. Okay to send home from a renal standpoint. We will ask the patient to follow up with and find a PCP within the next 1-2 weeks. The patient is to follow up with Nephrology in 1-2 weeks and follow up with Cardiology as directed. Activity level as tolerated. I have taken the patient off his home medication of metformin due to his renal function. We will start him on renally neutral Tradjenta 5 mg p.o. daily and continue his other home medications. Put in an order for Case Management to help the patient find a CHF program and/or cardiac rehab. Dietitian is to see the patient before he leaves regarding renal-diabetic diet. Dictated by Jayjay Padron NP MD JARROD JainP/OMID /[id number]
== END 2018-10-08 15:39 | disposition home or self-care (01) | DRG 246 ==
LOC: ER 14:57 → ERHOLD 18:03 → MED/SURG2 21:17 → MED/SURG 10-05 21:16 → ICU 10-06 19:36 → MED/SURG2 10-07 18:17
PROVIDERS: ADMIT Internal Medicine; ATTEND Internal Medicine
PROC: 30233N1 Transfusion of Nonautologous Red Blood Cells into Peripheral Vein, Percutaneous Approach (ICD-10-PCS; principal; 2018-10-05)
PROC: 027035Z Dilation of Coronary Artery, One Artery with Two Drug-eluting Intraluminal Devices, Percutaneous Approach (ICD-10-PCS; 2018-10-06)
DX: I13.0 Hypertensive heart and chronic kidney disease with heart failure and stage 1 through stage 4 chronic kidney disease, or unspecified chronic kidney disease (principal); I50.23 Acute on chronic systolic (congestive) heart failure; N18.4 Chronic kidney disease, stage 4 (severe); I25.2 Old myocardial infarction; E11.22 Type 2 diabetes mellitus with diabetic chronic kidney disease; Z87.891 Personal history of nicotine dependence; Z95.5 Presence of coronary angioplasty implant and graft; Z82.49 Family history of ischemic heart disease and other diseases of the circulatory system; Z83.3 Family history of diabetes mellitus; E83.41 Hypermagnesemia; D64.9 Anemia, unspecified; Z79.84 Long term (current) use of oral hypoglycemic drugs; E11.21 Type 2 diabetes mellitus with diabetic nephropathy; Z91.19 Patient's noncompliance with other medical treatment and regimen
CPT/HCPCS: 36415; 71045; 76770; 80048; 80053; 80061; 81001; 82270; 82550; 82553; 82607; 82728; 82746; 82948; 83036; 83540; 83735; 83880; 84466; 84484; 85025; 85610; 85730; 86850; 86900; 86920; 92928; 92929; 93005; 93306; 93454; 94640; 96372; 99284; C1760; C1769; C1887; J1644; J1940; J2001; J2250; J2405; J2920; J7030; J7050; P9016; Q9967

== ENCOUNTER 2019-04-21 06:50 | Emergency (ER) | payer SELFPAY ==
[~2019-04-21] VITALS: Ht 177.8 cm; Wt 95.3 kg
[~2019-04-21 06:50] MED LIST changes: +ACETAMINOPHEN325 M1 PO; +CITRUCEL500 MG PO; +MUCINEX DM ER1 EACH PO; +MULTI-VITAMIN1 EACH PO; +TRADJENTA5 MG PO
[2019-04-21] MEDS ORDERED: ONDANSETRON HCL INJ 2MG/ML 2ML 2 MG/ML VIAL IV STA (07:27)
[2019-04-21] MEDS ORDERED: KETOROLAC TROMETHAMINE 30 MG/ML VIAL IV STA (07:27)
[2019-04-21] MEDS ORDERED: SODIUM CHLORIDE 0.9% 1000ML 1,000 ML IV ONE (07:30)
--- NOTE | 2019-04-21 07:48 | NUR ---
PATIENT IN CT AT THIS TIME
[2019-04-21 08:20] LABS: CLARITY,URINE HAZY (CLEAR); COLOR,URINE YELLOW (YELLOW); LEUKOCYTE ESTERASE ,URINE NEGATIVE (NEGATIVE)
[2019-04-21 08:20] LABS: BASOPHILS % 0.3 % (0.0-1.0); EOSINOPHILS # (AUTO) 0.1 (0.0-0.4); EOSINOPHILS % 0.9 % (0.0-6.0); HEMATOCRIT 36.8 % (38.2-49.6); HEMOGLOBIN 12.6 g/dL (14.0-18.0); LYMPHOCYTES # (AUTO) 1.5 (1.0-3.2); LYMPHOCYTES % 11.1 % (18.0-39.1); MEAN CORPUSCULAR HEMOGLOBIN 25.5 pg (28-32); MEAN CORPUSCULAR HGB CONC 34.2 g/dL (31-35); MEAN CORPUSCULAR VOLUME 74.5 fL (81-99); MONOCYTES % 7.3 % (4.4-11.3); NEUTROPHILS # (AUTO) 10.5 (2.1-6.9); PLATELET COUNT 270 x10e3/uL (140-360); RED BLOOD COUNT 4.94 x10e6/uL (4.3-5.7); RED CELL DISTRIBUTION WIDTH 15.5 % (11.7-14.4)
[2019-04-21 08:21] LABS: NITRITE,URINE NEGATIVE (NEGATIVE); PROTEIN,URINE DIPSTICK 2+ (NEGATIVE)
[2019-04-21 08:22] LABS: BILIRUBIN,URINE NEGATIVE (NEGATIVE); KETONES,URINE NEGATIVE (NEGATIVE); URINE UROBILINOGEN 0.2 mg/dL (0.2 - 1)
[2019-04-21 08:27] LABS: BACTERIA,URINE MANY /HPF; EPITHELIAL CELLS,URINE MODERATE /LPF; RBC,URINE >50 /HPF (0-5)
[2019-04-21 08:47] LABS: POTASSIUM 4.1 mmol/L (3.5-5.1)
[2019-04-21 08:48] LABS: ALBUMIN 4.5 g/dL (3.5-5.0); ANION GAP 16.1 mmol/L (8-16); CALCIUM 9.9 mg/dL (8.4-10.2); CREATININE, SERUM 3.73 mg/dL (0.72-1.25)
--- NOTE | 2019-04-21 08:52 | Diagnostic Imaging Report ---
CT of the abdomen and pelvis, without contrast. History: Flank pain. Comparison: None available. Technique: Multidetector CT scanning of the abdomen and pelvis was performed from the level of the lung bases to the inferior pubic rami without the use of contrast material. Coronal and sagittal multiplanar reformations were obtained. RADIATION DOSE: Total DLP: 556.40 mGy*cm Dose modulation, iterative reconstruction, and/or weight based adjustment of the mA/kV was utilized to reduce the radiation dose to as low as reasonably achievable. Discussion: The visualized lungs are clear. The imaged portion of the heart demonstrates no significant abnormalities. The liver is mildly enlarged but otherwise normal in attenuation on this noncontrast enhanced examination. The gallbladder is unremarkable. There is no evidence for radiopaque stones, wall thickening, or pericholecystic fluid. There is no biliary ductal dilatation. The spleen is mildly prominent but otherwise appears unremarkable. Incidentally noted is a splenule adjacent to the spleen. There is a 1.6 cm right adrenal nodule. The left adrenal gland is unremarkable. The stomach and pancreas demonstrate an unremarkable noncontrast appearance. The kidneys are normal in size and location. There is a 4 mm stone identified within the bladder just distal to the left UVJ. There is mild prominence of the left ureter with associated adjacent stranding likely reflecting recently passed stone. There is no evidence for nephrolithiasis or hydronephrosis. The right ureter is normal in course and caliber. The prostate demonstrate no significant abnormalities. Please note evaluation the bowel is limited without the use of enteric contrast material. The visualized loops of small large bowel demonstrate no evidence of obstruction or inflammation. The appendix is visualized and appears unremarkable. There is no ascites or intraperitoneal free air. There is a small fat-containing left inguinal hernia. No abnormally enlarged lymph nodes are identified within the abdomen or pelvis. The osseous structures demonstrate no evidence for acute fracture or destructive process. The extraperitoneal soft tissues are unremarkable. IMPRESSION: 1. 4 mm stone identified within the bladder distal to the left UVJ. There is mild prominence and adjacent stranding of the left ureter suggesting sequela of recently passed stone. 2. 1.6 cm right adrenal nodule which is favored to represent a benign adenoma but is not definitively characterized on this noncontrast enhanced examination. Signed by: Dr. Tr Romano MD on 04/21/2019 8:49 AM
[2019-04-21 09:28] VITALS: BP 96/61
== END 2019-04-21 09:36 | disposition home or self-care (01) ==
LOC: ER 06:50
DX: R30.0 Dysuria (principal); R11.2 Nausea with vomiting, unspecified; R10.32 Left lower quadrant pain; M54.5 Low back pain; R19.7 Diarrhea, unspecified; N20.0 Calculus of kidney; I51.9 Heart disease, unspecified; I10 Essential (primary) hypertension; E11.9 Type 2 diabetes mellitus without complications; I25.2 Old myocardial infarction; Z95.5 Presence of coronary angioplasty implant and graft
CPT/HCPCS: 36415; 74176; 80053; 81001; 85025; 99284; J1885; J2405; J7030

== ENCOUNTER 2020-07-27 07:55 | Emergency (ER) | payer OTHER ==
[~2020-07-27] VITALS: Ht 177.8 cm; Wt 95.3 kg
[2020-07-27 08:32] LABS: INR 2.44; PROTHROMBIN TIME 28.5 seconds (11.9-14.5)
[2020-07-27 08:33] LABS: BASOPHILS # (AUTO) 0.1 (0.0-0.1); BASOPHILS % 0.9 % (0.0-1.0); EOSINOPHILS # (AUTO) 0.1 (0.0-0.4); EOSINOPHILS % 2.1 % (0.0-6.0); HEMATOCRIT 32.6 % (38.2-49.6); HEMOGLOBIN 9.9 g/dL (14.0-18.0); LYMPHOCYTES # (AUTO) 1.3 (1.0-3.2); LYMPHOCYTES % 22.3 % (18.0-39.1); MEAN CORPUSCULAR HEMOGLOBIN 23.5 pg (28-32); MEAN CORPUSCULAR HGB CONC 30.4 g/dL (31-35); MEAN CORPUSCULAR VOLUME 77.3 fL (81-99); MONOCYTES # (AUTO) 0.5 (0.2-0.8); MONOCYTES % 7.9 % (4.4-11.3); NEUTROPHILS # (AUTO) 3.9 (2.1-6.9); NEUTROPHILS % 66.6 % (38.7-80.0); PLATELET COUNT 302 x10e3/uL (140-360); RED BLOOD COUNT 4.22 x10e6/uL (4.3-5.7); RED CELL DISTRIBUTION WIDTH 16.2 % (11.7-14.4)
[2020-07-27 08:39] LABS: ALBUMIN 3.7 g/dL (3.5-5.0); ALBUMIN/GLOBULIN RATIO 0.8 (0.8-2.0); ANION GAP 17.2 mmol/L (8-16); CREATININE, SERUM 3.27 mg/dL (0.72-1.25); POTASSIUM 4.2 mmol/L (3.5-5.1)
[2020-07-27 10:48] VITALS: BP 142/85
== END 2020-07-27 10:50 | disposition home or self-care (01) ==
LOC: ER 08:17
DX: R42 Dizziness and giddiness (principal); R55 Syncope and collapse; W18.30XA Fall on same level, unspecified, initial encounter; Y99.0 Civilian activity done for income or pay; E11.65 Type 2 diabetes mellitus with hyperglycemia; I10 Essential (primary) hypertension; E78.5 Hyperlipidemia, unspecified; I25.2 Old myocardial infarction; Z95.5 Presence of coronary angioplasty implant and graft
CPT/HCPCS: 36415; 70450; 71045; 80053; 83880; 84484; 85025; 85610; 93005; 99284